=== PATIENT | female | born 1980 | race Caucasian/White ===

== ENCOUNTER 2016-12-06 17:00 | Emergency (ER) | payer OTHER ==
--- NOTE | 2016-12-06 17:26 | ED ---
General Adult HPI - General Chief complaint: Urogenital Stated complaint: URI Time Seen by Provider: 12/06/16 17:12 Source: patient, RN notes reviewed Mode of arrival: ambulatory Limitations: no limitations - History of Present Illness Initial comments: This is a 36-year-old female presents with symptoms of a UTI that started 2 hours ago. Patient states she gets UTIs very frequently and has the same symptoms every time. Patient is complaining of frequency of urination, burning with urination and a feeling of pressure in the area of the bladder. Patient denies any fever, abdominal pain, nausea/vomiting/diarrhea or flank pain. Patient denies any chance of being . Patient states she cannot get into her doctor so she came to the today. Patient denies any gross hematuria or history of kidney stones. Patient denies any recent fever, chills , shortness breath, chest pain, back pain, numbness, tingling, headache, or visual changes, or any other complaints. - Related Data Home Medications Medication Instructions Recorded Confirmed Levothyroxine Sodium [Synthroid] 250 mcg PO DAILY 07/25/16 12/06/16 Albuterol Inhaler [Ventolin Hfa 1 - 2 puff INHALATION RT-Q6H PRN 12/06/16 Inhaler] Ergocalciferol [Vitamin D2] 50,000 unit PO FR 12/06/16 12/06/16 Previous Rx's Medication Instructions Recorded Phenazopyridine HCl [Pyridium] 100 mg PO TID #6 tab 12/06/16 Sulfamethox-Tmp 800-160Mg [Bactrim 1 tab PO Q12HR #20 tab 12/06/16 DS 800-160 mg] Allergies Allergy/AdvReac Type Severity Reaction Status Date / Time clarithromycin [From Biaxin] AdvReac Nausea & Verified 12/06/16 17:13 Vomiting Review of Systems ROS Statement: Those systems with pertinent positive or pertinent negative responses have been documented in the HPI. ROS Other: All systems not noted in ROS Statement are negative. Past Medical History Past Medical History: Thyroid Disorder History of Any Multi-Drug Resistant Organisms: MRSA Date of last positivie culture/infection: 01/12/16 MDRO Source:: groin Past Surgical History: Appendectomy, Tubal Ligation, Uterine Ablation Past Psychological History: No Psychological Hx Reported Smoking Status: Former smoker Past Alcohol Use History: Occasional Past Drug Use History: None Reported General Exam - General Exam Comments Initial Comments: General: The patient is awake and alert, in no distress, and does not appear acutely ill. Neck: The neck is supple, there is no tenderness or JVD. Cardiovascular: There is a regular rate and rhythm. No murmur, rub or gallop is appreciated. Respiratory: Lungs are clear to auscultation, respirations are non-labored, breath sounds are equal. No wheezes, stridor, rales, or rhonchi. Gastrointestinal: Soft, non-distended, non-tender abdomen without masses or organomegaly noted. There is no rebound or guarding present. No CVA tenderness. Bowel sounds are unremarkable. Musculoskeletal: Normal ROM, no tenderness. Strength 5/5. Sensation intact. Radial pulses equal bilaterally 2+. Neurological: A&O x 3. CN II-XII intact, There are no obvious motor or sensory deficits. Coordination appears grossly intact. Speech is normal. Skin: Skin is warm and dry and no rashes or lesions are noted. Psychiatric: Cooperative, appropriate mood & affect, normal judgment. Limitations: no limitations Course Vital Signs 12/06/16 17:05 Temperature 97.4 F L Pulse Rate 74 Respiratory 16 Rate Blood Pressure 125/76 O2 Sat by Pulse 98 Oximetry Medical Decision Making - Medical Decision Making 28-year-old female presents with symptoms of UTI that started 2 hours ago. On physical exam patient is afebrile in the EC. Soft, non-distended, non-tender abdomen without masses or organomegaly noted. There is no rebound or guarding present. No CVA tenderness. Bowel sounds are unremarkable. Urinalysis and urine culture were done. UA came back positive for UTI. I discussed the results with patient. Patient will be started on antibiotics for this. The patient needs to drink plenty of fluids. I discussed return parameters. Discussed that patient should follow up with PCP in one to 2 days or return to the EC for any worsening symptoms or for any further concerns. Patient was receptive to this plan and patient will be discharged home. - Lab Data Lab Results 12/06/16 Range/Units 17:07 Urine Color Yellow Urine Appearance Cloudy H (Clear) Urine pH 6.0 (5.0-8.0) Ur Specific [place] 1.016 (1.001-1.035) Urine Protein Trace H (Negative) Urine Glucose (UA) Negative (Negative) Urine Ketones Negative (Negative) Urine Blood Small H (Negative) Urine Nitrate Negative (Negative) Urine Bilirubin Negative (Negative) Urine Urobilinogen <2.0 (<2.0) mg/dL Ur Leukocyte Esterase Large H (Negative) Urine RBC 28 H (0-5) /hpf Urine WBC 58 H (0-5) /hpf Ur Squamous Epith Cells 11 H (0-4) /hpf Urine Mucus Rare H (None) /hpf Urine Yeast (Budding) Few H (None) /hpf Disposition Clinical Impression: Urinary tract infection Disposition: HOME SELF-CARE Condition: Good Instructions: Urinary Tract Infection in Women (ED) Additional Instructions: Please be Sure to drink plenty of fluids. Please finish entire course of antibiotics.Please use medication as discussed. Please follow-up with family doctor in the next 2 days of symptoms have not improved. Please return to emergency room if the symptoms increase or worsen or for any other concerns. Prescriptions: Phenazopyridine HCl [Pyridium] 100 mg PO TID #6 tab Sulfamethox-Tmp 800-160Mg [Bactrim DS 800-160 mg] 1 tab PO Q12HR #20 tab Time of Disposition: 17:57
[2016-12-06 17:43] LABS: Appearance,Urine Cloudy (Clear); Bilirubin,Urine Negative (Negative); Glucose,Urine (UA) Negative (Negative); Ketones,Urine Negative (Negative); Leukocyte Esterase,Urine Large (Negative); Mucus,Urine Rare /hpf; Nitrite,Urine Negative (Negative); Particle Count 7569; Protein,Urine Trace (Negative); RBC,Urine 28 /hpf (0-5); Specific Gravity,Urine 1.016 (1.001-1.035); Squamous Epithelial Cell,Urine 11 /hpf (0-4); UA Billing (MACRO vs. MICRO) MICRO; Urobilinogen,Urine <2.0 mg/dL (<2.0); WBC,Urine 58 /hpf (0-5)
[2016-12-06 17:59] VITALS: BP 122/75; PULSE 76; RESP 18; TEMP 97.5
== END 2016-12-06 18:06 | disposition home or self-care (01) ==
LOC: EC 17:00
DX: N39.0 Urinary tract infection, site not specified (principal); E07.9 Disorder of thyroid, unspecified; Z79.899 Other long term (current) drug therapy; Z88.1 Allergy status to other antibiotic agents; Z87.891 Personal history of nicotine dependence; Z87.440 Personal history of urinary (tract) infections
CPT/HCPCS: 81001; 87077; 87086; 87186; 99283

== ENCOUNTER 2017-05-01 21:01 | Emergency (ER) | payer OTHER ==
[2017-05-01 21:16] VITALS: BP 124/72; PULSE 82; RESP 20; TEMP 98.1
--- NOTE | 2017-05-01 21:46 | ED ---
General Adult HPI - General Chief complaint: Skin/Abscess/Foreign Body Stated complaint: Poss MRSA Time Seen by Provider: 05/01/17 21:30 Source: patient, RN notes reviewed Mode of arrival: ambulatory Limitations: no limitations - History of Present Illness Initial comments: 36-year-old female with past medical history of MRSA presents for abscess to the right buttock. Patient states this started yesterday. Patient has noticed some pain to the area without any drainage. She was concerned due to her symptoms so she thought that she should be evaluated. She denies any fever chills. Tender to touch over the area with no other complaints.Patient denies any recent fever, chills, shortness of breath, chest pain, back pain, abdominal pain, nausea vomiting, numbness or tingling, dysuria or hematuria, constipation or diarrhea, headaches or visual changes, or any other current symptoms. - Related Data Home Medications Medication Instructions Recorded Confirmed Levothyroxine Sodium [Synthroid] 250 mcg PO DAILY 07/25/16 05/01/17 Previous Rx's Medication Instructions Recorded Sulfamethox-Tmp 800-160Mg [Bactrim 2 each PO Q12HR #56 tab 05/01/17 DS 800-160 mg] Allergies Allergy/AdvReac Type Severity Reaction Status Date / Time clarithromycin [From Biaxin] AdvReac Nausea & Verified 05/01/17 21:35 Vomiting Review of Systems ROS Statement: Those systems with pertinent positive or pertinent negative responses have been documented in the HPI. ROS Other: All systems not noted in ROS Statement are negative. Past Medical History Past Medical History: Thyroid Disorder History of Any Multi-Drug Resistant Organisms: MRSA Date of last positivie culture/infection: 01/12/16 MDRO Source:: groin Past Surgical History: Appendectomy, Tubal Ligation, Uterine Ablation Past Psychological History: No Psychological Hx Reported Smoking Status: Former smoker Past Alcohol Use History: Occasional Past Drug Use History: None Reported General Exam Limitations: no limitations General appearance: alert, in no apparent distress Neck exam: Present: normal inspection. Absent: tenderness, meningismus, lymphadenopathy Respiratory exam: Present: normal lung sounds bilaterally. Absent: respiratory distress, wheezes, rales, rhonchi, stridor Cardiovascular Exam: Present: regular rate, normal rhythm, normal heart sounds. Absent: systolic murmur, diastolic murmur, rubs, gallop, clicks Neurological exam: Present: alert, oriented X3 Psychiatric exam: Present: normal affect, normal mood Skin exam: Present: warm, dry, other (Patient appears to have a right gluteal abscess. This is minor with no associated erythema around the area.) Course Vital Signs 05/01/17 21:13 Temperature 98.1 F Pulse Rate 82 Respiratory 20 Rate Blood Pressure 124/72 O2 Sat by Pulse 98 Oximetry Procedures - Procedures Initial comment: Procedure: Incision and drainage The skin overlying the abscess was prepped with Betadine, and anesthetized with 1% lidocaine without epinephrine. A #11 scalpel was then used to incise the abscess. no purulent material was then extracted from the lesion.Gauze dressing placed on top, The patient tolerated the procedure well. Medical Decision Making - Medical Decision Making 36-year-old female presents for right gluteal abscess. This time I did not have any purulent material. We did discuss care follow-up return parameters. We did discuss all the patient's questions. He stated the [facility] management plan. They will be discharged home. Disposition Clinical Impression: Abscess, gluteal, right Disposition: HOME SELF-CARE Condition: Stable Instructions: Abscess (ED) Additional Instructions: Please use medication as discussed. Please follow up with family doctor if symptoms have not improved over the next two days. Please return to the emergency room if your symptoms increase or worsen or for any other concerns. Prescriptions: Sulfamethox-Tmp 800-160Mg [Bactrim DS 800-160 mg] 2 each PO Q12HR #56 tab Referrals: Yuliet Roche DO [Primary Care Provider] - 1-2 days Time of Disposition: 21:46
== END 2017-05-01 21:52 | disposition home or self-care (01) ==
LOC: EC 21:01
DX: L02.31 Cutaneous abscess of buttock (principal); E07.9 Disorder of thyroid, unspecified; Z79.899 Other long term (current) drug therapy; Z88.1 Allergy status to other antibiotic agents; Z87.891 Personal history of nicotine dependence; Z86.14 Personal history of Methicillin resistant Staphylococcus aureus infection
CPT/HCPCS: 10060; 99283

== ENCOUNTER 2017-11-23 07:26 | Emergency (ER) | payer OTHER ==
[2017-11-23 07:34] VITALS: RESP 18; TEMP 99.4
--- NOTE | 2017-11-23 09:03 | ED ---
General Adult HPI - General Chief complaint: Skin/Abscess/Foreign Body Stated complaint: Boils Time Seen by Provider: 11/23/17 08:44 Source: patient, RN notes reviewed Mode of arrival: ambulatory Limitations: no limitations - History of Present Illness Initial comments: 37-year-old female presents to the emergency department with a chief complaint of flareup of her hidradenitis. Patient states that she has had this on her arm for the past few days. She states that we are no suppose to drain this. She states that she supposed to be started on antibiotics. She denies any fever chills with this. She states it is painful to touch. She states that she was recently on a different antibiotic than normal the last one which did not feel like that helped. Patient states she hasn't had a nausea vomiting with this. Patient states her pain is moderate worse to touch or movement. Patient states that she just needs her antibiotic and hopefully it will improve. Patient denies any other symptoms at this time.Patient denies any recent fever, chills, shortness of breath, chest pain, back pain, abdominal pain , nausea vomiting, numbness or tingling, dysuria or hematuria, constipation or diarrhea, headaches or visual changes, or any other current symptoms. - Related Data Home Medications Medication Instructions Recorded Confirmed Levothyroxine Sodium [Synthroid] 250 mcg PO DAILY 07/25/16 11/23/17 Ascorbic Acid/Multivit-Min 1,000 mg PO DAILY 11/23/17 11/23/17 [Emergen-C 1,000 mg Packet] Boswella 1 tab PO DAILY 11/23/17 11/23/17 Forskolin 1 tab PO DAILY 11/23/17 11/23/17 Ibuprofen [Motrin] 800 mg PO Q6H PRN 11/23/17 11/23/17 Previous Rx's Medication Instructions Recorded Sulfamethox-Tmp 800-160Mg [Bactrim 2 each PO Q12HR #56 tab 11/23/17 DS 800-160 mg] Allergies Allergy/AdvReac Type Severity Reaction Status Date / Time clarithromycin [From Biaxin] AdvReac Nausea & Verified 11/23/17 07:50 Vomiting Review of Systems ROS Statement: Those systems with pertinent positive or pertinent negative responses have been documented in the HPI. ROS Other: All systems not noted in ROS Statement are negative. Past Medical History Past Medical History: Thyroid Disorder Additional Past Medical History / Comment(s): Hidradenitis suppurativa History of Any Multi-Drug Resistant Organisms: MRSA Date of last positivie culture/infection: 01/12/16 MDRO Source:: groin Past Surgical History: Appendectomy, Tubal Ligation, Uterine Ablation Past Psychological History: No Psychological Hx Reported Smoking Status: Former smoker Past Alcohol Use History: Occasional Past Drug Use History: None Reported General Exam - General Exam Comments Initial Comments: General: The patient is awake and alert, in no distress, and does not appear acutely ill. Neck: The neck is supple, there is no tenderness. Cardiovascular: There is a regular rate and rhythm. No murmur, rub or gallop is appreciated. Respiratory: Lungs are clear to auscultation, respirations are non-labored, breath sounds are equal. No wheezes, stridor, rales, or rhonchi. Musculoskeletal: Sensation intact with 2+ pulses throughout the right upper extremity. Patient has full range of motion of the right arm. Patient does appear to have an abscess in the right axilla with minimal erythema surrounding the area. Some fluctuance to touch. No purulent drainage observed. Neurological: CN II-XII intact, There are no obvious motor or sensory deficits. Coordination appears grossly intact. Speech is normal. Skin: Skin is warm and dry and no rashes or lesions are noted. Psychiatric: Normal mood and affect. Limitations: no limitations Course Vital Signs 11/23/17 07:27 Temperature 99.4 F Pulse Rate 105 H Respiratory 18 Rate Blood Pressure 119/78 O2 Sat by Pulse 98 Oximetry Medical Decision Making - Medical Decision Making 37-year-old female presents for an abscess under the right axilla. At this time patient has a history of hidradenitis therefore we'll start her on Bactrim however will not drain the abscess to her diagnosis. I this and we did discuss follow-up with her doctor we did discuss return parameters all questions. The patient stated that she understood and is in agreement with this plan. All of her questions have been answered. Patient will be discharged home. Disposition Clinical Impression: Abscess of right axilla, Hydradenitis Disposition: HOME SELF-CARE Condition: Stable Instructions: Abscess (ED) Additional Instructions: Please use medication as discussed. Please follow up with family doctor if symptoms have not improved over the next two days. Please return to the emergency room if your symptoms increase or worsen or for any other concerns. Prescriptions: Sulfamethox-Tmp 800-160Mg [Bactrim DS 800-160 mg] 2 each PO Q12HR #56 tab Referrals: Yuliet Roche DO [Primary Care Provider] - 1-2 days Time of Disposition: 09:03
[2017-11-23 09:33] VITALS: BP 118/80; PULSE 87
== END 2017-11-23 09:33 | disposition home or self-care (01) ==
LOC: EC 07:26
DX: L02.411 Cutaneous abscess of right axilla (principal); L73.2 Hidradenitis suppurativa; E07.9 Disorder of thyroid, unspecified; Z86.14 Personal history of Methicillin resistant Staphylococcus aureus infection; Z87.891 Personal history of nicotine dependence; Z79.899 Other long term (current) drug therapy; Z88.1 Allergy status to other antibiotic agents
CPT/HCPCS: 99282

== ENCOUNTER 2017-11-23 15:26 | Emergency (ER) | payer OTHER ==
[2017-11-23] MEDS ORDERED: VANCOMYCIN IV PER PHARMACY 1 EACH MISC MISCELLANE PRN (15:47)
[2017-11-23] MEDS ORDERED: VANCOMYCIN 1,500 MG in SODIUM CHLORIDE 0.9% 250 ML IVPB STA (15:53)
[2017-11-23] MEDS ORDERED: ACETAMINOPHEN TAB 500 MG TAB PO STA (15:59)
--- NOTE | 2017-11-23 15:59 | ED ---
General Adult HPI - General Chief complaint: Skin/Abscess/Foreign Body Stated complaint: Fever Time Seen by Provider: 11/23/17 15:40 Source: patient, RN notes reviewed Mode of arrival: ambulatory Limitations: no limitations - History of Present Illness Initial comments: 37-year-old female who was seen earlier today for an abscess under the right axilla returns because she developed a fever. She states this happened was she was at work. She is concerned because she just keeps getting hot flashes. She states she took Motrin earlier today. She denies any Tylenol. She did take her first dose of Bactrim. She states that the abscess under her right axilla continues to be painful. She thought that she should be evaluated. She denies any nausea vomiting any cough cold like symptoms. Patient denies any recent fever, chills, shortness of breath, chest pain, back pain, abdominal pain, nausea vomiting, numbness or tingling, dysuria or hematuria, constipation or diarrhea, headaches or visual changes, or any other current symptoms. - Related Data Home Medications Medication Instructions Recorded Confirmed Levothyroxine Sodium [Synthroid] 250 mcg PO DAILY 07/25/16 11/23/17 Ascorbic Acid/Multivit-Min 1,000 mg PO DAILY 11/23/17 11/23/17 [Emergen-C 1,000 mg Packet] Boswella 1 tab PO DAILY 11/23/17 11/23/17 Forskolin 1 tab PO DAILY 11/23/17 11/23/17 Ibuprofen [Motrin] 800 mg PO Q6H PRN 11/23/17 11/23/17 Sulfamethox-Tmp 800-160Mg [Bactrim 2 tab PO Q12HR 11/23/17 11/23/17 DS 800-160 mg] Allergies Allergy/AdvReac Type Severity Reaction Status Date / Time clarithromycin [From Biaxin] AdvReac Nausea & Verified 11/23/17 15:45 Vomiting Review of Systems ROS Statement: Those systems with pertinent positive or pertinent negative responses have been documented in the HPI. ROS Other: All systems not noted in ROS Statement are negative. Past Medical History Past Medical History: Thyroid Disorder Additional Past Medical History / Comment(s): Hidradenitis suppurativa History of Any Multi-Drug Resistant Organisms: MRSA Date of last positivie culture/infection: 01/12/16 MDRO Source:: groin Past Surgical History: Appendectomy, Tubal Ligation, Uterine Ablation Past Psychological History: No Psychological Hx Reported Smoking Status: Former smoker Past Alcohol Use History: Occasional Past Drug Use History: None Reported General Exam Limitations: no limitations General appearance: alert, in no apparent distress ENT exam: Present: normal exam, mucous membranes moist Neck exam: Present: normal inspection. Absent: tenderness, meningismus, lymphadenopathy Respiratory exam: Present: normal lung sounds bilaterally. Absent: respiratory distress, wheezes, rales, rhonchi, stridor Cardiovascular Exam: Present: regular rate, normal rhythm, normal heart sounds. Absent: systolic murmur, diastolic murmur, rubs, gallop, clicks Neurological exam: Present: alert, oriented X3 Psychiatric exam: Present: normal affect, normal mood Skin exam: Present: warm, dry, intact, other (Abscess under the right axilla with minimal erythema no active drainage.) Course Vital Signs 11/23/17 15:32 Temperature 100.4 F H Pulse Rate 78 Respiratory 16 Rate Blood Pressure 131/80 O2 Sat by Pulse 97 Oximetry Medical Decision Making - Medical Decision Making 37-year-old female presents emergency department with chief complaint of abscess due to hidradenitis along with fever. At this time patient's lab work is been reviewed that shows mildly elevated white count. Thepatient is stable. This and we did discuss admission versus going home. She would rather go home. This and we discussed continuing the Bactrim which she took her first dose this morning. We did discuss continued follow-up. We did discuss return parameters all questions. Patient stated that she understood and she is agreement this plan. She'll be discharged. - Lab Data Result diagrams: 11/23/17 16:16 11/23/17 16:16 Lab Results 11/23/17 11/23/17 Range/Units 16:16 16:16 WBC 12.4 H (3.8-10.6) k/uL RBC 4.52 (3.80-5.40) m/uL Hgb 13.3 (11.4-16.0) gm/dL Hct 41.8 (34.0-46.0) % MCV 92.4 (80.0-100.0) fL MCH 29.5 (25.0-35.0) pg MCHC 31.9 (31.0-37.0) g/dL RDW 11.9 (11.5-15.5) % Plt Count 264 (150-450) k/uL Neutrophils % 81 % Lymphocytes % 11 % Monocytes % 7 % Eosinophils % 1 % Basophils % 0 % Neutrophils # 10.0 H (1.3-7.7) k/uL Lymphocytes # 1.3 (1.0-4.8) k/uL Monocytes # 0.9 (0-1.0) k/uL Eosinophils # 0.1 (0-0.7) k/uL Basophils # 0.0 (0-0.2) k/uL Sodium 140 (137-145) mmol/L Potassium 4.2 (3.5-5.1) mmol/L Chloride 101 (98-107) mmol/L Carbon Dioxide 25 (22-30) mmol/L Anion Gap 14 mmol/L BUN 12 (7-17) mg/dL Creatinine 0.80 (0.52-1.04) mg/dL Est GFR (MDRD) Af Amer >60 (>60 ml/min/1.73 sqM) Est GFR (MDRD) Non-Af >60 (>60 ml/min/1.73 sqM) Glucose 89 (74-99) mg/dL Calcium 9.8 (8.4-10.2) mg/dL Total Bilirubin 0.7 (0.2-1.3) mg/dL AST 20 (14-36) U/L ALT 32 (9-52) U/L Alkaline Phosphatase 64 (38-126) U/L Total Protein 7.2 (6.3-8.2) g/dL Albumin 4.2 (3.5-5.0) g/dL Disposition Clinical Impression: Abscess of right axilla, Hydradenitis Disposition: HOME SELF-CARE Condition: Stable Instructions: Abscess (ED) Additional Instructions: Please use medication as discussed. Please follow up with family doctor if symptoms have not improved over the next two days. Please return to the emergency room if your symptoms increase or worsen or for any other concerns. Referrals: Yuliet Roche DO [Primary Care Provider] - 1-2 days Time of Disposition: 17:36
[2017-11-23 16:29] LABS: Basophils % (A) 0 %; Eosinophils # (A) 0.1 k/uL (0-0.7); Eosinophils % (A) 1 %; HCT 41.8 % (34.0-46.0); HGB 13.3 gm/dL (11.4-16.0); Lymphocytes # (A) 1.3 k/uL (1.0-4.8); Lymphocytes % (A) 11 %; MCH 29.5 pg (25.0-35.0); MCHC 31.9 g/dL (31.0-37.0); MCV 92.4 fL (80.0-100.0); Mean Platelet Volume 7.5; Monocytes # (A) 0.9 k/uL (0-1.0); Monocytes % (A) 7 %; Neutrophils % (A) 81 %; Platelet Count 264 k/uL (150-450); RBC 4.52 m/uL (3.80-5.40); RDW 11.9 % (11.5-15.5); WBC 12.4 k/uL (3.8-10.6)
[2017-11-23 16:42] LABS: ALT 32 U/L (9-52); AST 20 U/L (14-36); Albumin 4.2 g/dL (3.5-5.0); Alkaline Phosphatase 64 U/L (38-126); Anion Gap 14 mmol/L; Blood Urea Nitrogen 12 mg/dL (7-17); Calcium 9.8 mg/dL (8.4-10.2); Carbon Dioxide 25 mmol/L (22-30); Chloride 101 mmol/L (98-107); Glucose 89 mg/dL (74-99); Potassium 4.2 mmol/L (3.5-5.1); Sodium 140 mmol/L (137-145); Total Bilirubin 0.7 mg/dL (0.2-1.3); Total Protein 7.2 g/dL (6.3-8.2)
[2017-11-23 18:54] VITALS: BP 118/68; PULSE 100; RESP 18; TEMP 98
[2017-11-24] MEDS ORDERED: VANCOMYCIN 1,500 MG in SODIUM CHLORIDE 0.9% 250 ML IVPB SCH (06:00)
== END 2017-11-23 18:54 | disposition home or self-care (01) ==
LOC: EC 15:26
DX: L73.2 Hidradenitis suppurativa (principal); L02.411 Cutaneous abscess of right axilla; D72.829 Elevated white blood cell count, unspecified; E07.9 Disorder of thyroid, unspecified; Z87.891 Personal history of nicotine dependence; Z79.899 Other long term (current) drug therapy; Z88.1 Allergy status to other antibiotic agents; Z86.14 Personal history of Methicillin resistant Staphylococcus aureus infection
CPT/HCPCS: 99283 ×2; 96365 ×2; 96366 ×2; 99282; 36415; 80053; 85025; 87040; J3370

== ENCOUNTER 2017-12-06 17:45 | Emergency (ER) | payer OTHER ==
--- NOTE | 2017-12-06 19:08 | ED ---
Fall HPI - General Chief Complaint: Fall Stated Complaint: fall/finger pain Time Seen by Provider: 12/06/17 18:49 Source: patient Mode of arrival: ambulatory - History of Present Illness Initial Comments: 37 year-old female patient presents to the emergency department today with complaints of right fourth digit pain. Patient states that earlier today she was going into the hospital in the garage and she tripped up the stairs and fell landing with her fingers out. She states that she can feel a clicking of the finger whenever she attempts to bend it. She states that she did take Motrin for this and it did improve the pain somewhat. She denies hitting her head or losing consciousness with the fall. She denies any other injuries. Patient denies any headache, neck pain, back pain, chest pain, shortness of breath, dizziness, weakness, abdominal pain, nausea, vomiting, or difficulties with bowel movements or urination. - Related Data Home Medications Medication Instructions Recorded Confirmed Levothyroxine Sodium [Synthroid] 250 mcg PO DAILY 07/25/16 12/06/17 Ascorbic Acid/Multivit-Min 1,000 mg PO DAILY 11/23/17 12/06/17 [Emergen-C 1,000 mg Packet] Previous Rx's Medication Instructions Recorded Ibuprofen [Motrin] 600 mg PO Q8HR PRN #30 tab 12/06/17 Allergies Allergy/AdvReac Type Severity Reaction Status Date / Time clarithromycin [From Biaxin] AdvReac Nausea & Verified 12/06/17 18:42 Vomiting Review of Systems ROS Statement: Those systems with pertinent positive or pertinent negative responses have been documented in the HPI. ROS Other: All systems not noted in ROS Statement are negative. Past Medical History Past Medical History: Thyroid Disorder Additional Past Medical History / Comment(s): Hidradenitis suppurativa History of Any Multi-Drug Resistant Organisms: MRSA Date of last positivie culture/infection: 01/12/16 MDRO Source:: groin Past Surgical History: Appendectomy, Tubal Ligation, Uterine Ablation Past Psychological History: No Psychological Hx Reported Smoking Status: Former smoker Past Alcohol Use History: Occasional Past Drug Use History: None Reported General Exam Limitations: no limitations General appearance: alert, in no apparent distress, other (Physical well- developed, well-nourished adult female patient in no acute distress. Vital signs upon presentation are temperature 98.6F, pulse 85, respirations 20, blood pressure 138/67, pulse ox 99% on room air.) Eye exam: Present: normal appearance, PERRL, EOMI. Absent: scleral icterus, conjunctival injection, periorbital swelling ENT exam: Present: normal exam, normal oropharynx, mucous membranes moist Neck exam: Present: normal inspection, full ROM, other (Nontender, no step-off, no deformity to firm midline palpation of the posterior cervical spine. Full range of motion without pain or limitation.). Absent: tenderness, meningismus, lymphadenopathy Respiratory exam: Present: normal lung sounds bilaterally. Absent: respiratory distress, wheezes, rales, rhonchi, stridor Cardiovascular Exam: Present: regular rate, normal rhythm, normal heart sounds. Absent: systolic murmur, diastolic murmur, rubs, gallop, clicks Extremities exam: Present: full ROM (Full range of motion present to the right fourth digit, patient reports feeling clicking with movement), tenderness ( Tenderness over the distal aspect of the right fourth digit), normal capillary refill, other (There is mild swelling and ecchymosis noted to the distal aspect of the right fourth digit. Skin is otherwise pink, warm, and dry. Cap refill is less than 3 seconds. Radial pulses 2+ and equal bilaterally.). Absent: normal inspection, pedal edema, joint swelling, calf tenderness Back exam: Absent: vertebral tenderness Neurological exam: Present: alert, oriented X3, CN II-XII intact Psychiatric exam: Present: normal affect, normal mood Skin exam: Present: warm, dry, intact, normal color. Absent: rash Course Vital Signs 12/06/17 18:39 Temperature 98.6 F Pulse Rate 85 Respiratory 20 Rate Blood Pressure 138/67 O2 Sat by Pulse 99 Oximetry Procedures - Orthopedic Splinting/Casting Injury #1 Side: right Upper Extremity Injury Location: finger Upper Extremity Immobilizer: finger (other) Additional Comments: Patient tolerated splinting well. Neurovascular status intact after splint application. Medical Decision Making - Medical Decision Making 37-year-old female patient presents to the emergency department today for evaluation of right fourth finger pain after a fall at home. Physical examination does show mild swelling and ecchymosis to the distal aspect of the right fourth digit. Neurovascular status is intact. X-ray of the finger did show a intra-articular chip fracture of the proximal aspect of the distal phalanx. I did discuss findings with the patient. She was placed in a finger splint. She is instructed to follow-up with orthopedics for recheck in 1-2 days. She is instructed to return here immediately for any new, worsening, or concerning symptoms. She verbalizes understanding and agrees with this plan. - Radiology Data Radiology results: report reviewed, image reviewed 3 views of the right fourth digit shows a 5 mm intra-articular chip fracture of the posterior base of the distal phalanx of the ring finger on the right hand. There is no dislocation. Impression by Dr. Zepeda shows fracture of the distal phalanx ring finger right hand as above. Disposition Clinical Impression: Finger fracture, right Disposition: HOME SELF-CARE Condition: Good Instructions: Finger Fracture (ED) Additional Instructions: Leave splint in place for 2-3 weeks. Follow up with orthopedics for further evaluation. Return here immediately for any new, worsening, or concerning symptoms. Prescriptions: Ibuprofen [Motrin] 600 mg PO Q8HR PRN #30 tab PRN Reason: Pain Referrals: Yuliet Roche DO [Primary Care Provider] - 1-2 days Shay Arroyo DO [Doctor of Osteopathic Medicine] - 1-2 days Time of Disposition: 19:44
--- NOTE | 2017-12-06 19:39 | XR ---
EXAMINATION TYPE: XR finger RT DATE OF EXAM: 12/06/2017 COMPARISON: NONE HISTORY: Pain after falling TECHNIQUE: 3 views FINDINGS: There is a 5 mm intra-articular chip fracture of the posterior base of the distal phalanx o f the ring finger right hand. There is no dislocation. IMPRESSION: Fracture of the distal phalanx ring finger right hand as above.
[2017-12-06 20:07] VITALS: BP 127/84; PULSE 70; RESP 18; TEMP 98.8
== END 2017-12-06 20:06 | disposition home or self-care (01) ==
LOC: EC 17:45
DX: S62.634A Displaced fracture of distal phalanx of right ring finger, initial encounter for closed fracture (principal); E07.9 Disorder of thyroid, unspecified; Z86.14 Personal history of Methicillin resistant Staphylococcus aureus infection; Z87.891 Personal history of nicotine dependence; Z79.899 Other long term (current) drug therapy; Z88.1 Allergy status to other antibiotic agents; W10.9XXA Fall (on) (from) unspecified stairs and steps, initial encounter; Y92.008 Other place in unspecified non-institutional (private) residence as the place of occurrence of the external cause
CPT/HCPCS: 99283

== ENCOUNTER 2018-07-03 19:35 | Emergency (ER) | payer OTHER ==
[2018-07-03 21:25] LABS: Appearance,Urine Cloudy (Clear); Bilirubin,Urine Negative (Negative); Blood,Urine Small (Negative); Color,Urine Light Yellow; Glucose,Urine (UA) Negative (Negative); Ketones,Urine Trace (Negative); Leukocyte Esterase,Urine Large (Negative); Mucus,Urine Rare /hpf; Nitrite,Urine Negative (Negative); PH, Urine 7.5 (5.0-8.0); Protein,Urine Trace (Negative); RBC,Urine 34 /hpf (0-5); Specific Gravity,Urine 1.012 (1.001-1.035); Squamous Epithelial Cell,Urine 2 /hpf (0-4); Urobilinogen,Urine <2.0 mg/dL (<2.0); WBC,Urine >182 /hpf (0-5)
[2018-07-03] MEDS ORDERED: SULFAMETHOX-TMP 800-160MG 1 EACH TAB PO STA (21:34)
--- NOTE | 2018-07-03 21:39 | ED ---
Female Urogenital HPI - General Source: patient, RN notes reviewed Mode of arrival: ambulatory Limitations: no limitations <Cheyenne Shelby - Last Filed: 07/03/18 21:39> <Ayala Peterson - Last Filed: 07/03/18 23:17> - General Chief complaint: Urogenital Stated complaint: UTI/fever Time Seen by Provider: 07/03/18 20:17 - History of Present Illness Initial comments: This is a 38-year-old female who presents to the emergency department with chief complaint of urinary tract infection. Patient states that last evening she developed dysuria, increased urinary frequency and urgency. She reports a history of frequent urinary tract infections. She states that she usually takes Bactrim which has relieved her symptoms in the past. She denies any fevers or flank pain. Denies any chills, chest pain or shortness of breath, abdominal pain, nausea or vomiting, diarrhea. (Cheyenne Shelby) - Related Data Home Medications Medication Instructions Recorded Confirmed L.acidoph,Paracasei, B.lactis 1 cap PO DAILY 07/03/18 07/03/18 [Probiotic] Levothyroxine Sodium [Synthroid] 200 mcg PO DAILY 07/03/18 07/03/18 Multivitamins, Thera [Multivitamin 1 tab PO DAILY 07/03/18 07/03/18 (formulary)] Previous Rx's Medication Instructions Recorded Phenazopyridine HCl [Pyridium] 100 mg PO TID #6 tab 07/03/18 Sulfamethoxazole/Trimethoprim 1 each PO BID #10 tablet 07/03/18 [Bactrim DS 800-160 mg] Allergies Allergy/AdvReac Type Severity Reaction Status Date / Time clarithromycin [From Biaxin] AdvReac Nausea & Verified 07/03/18 20:21 Vomiting Review of Systems ROS Other: All systems not noted in ROS Statement are negative. <Cheyenne Shelby - Last Filed: 07/03/18 21:39> ROS Other: All systems not noted in ROS Statement are negative. <Ayala Peterson - Last Filed: 07/03/18 23:17> ROS Statement: Those systems with pertinent positive or pertinent negative responses have been documented in the HPI. Past Medical History Past Medical History: Thyroid Disorder Additional Past Medical History / Comment(s): Hidradenitis suppurativa History of Any Multi-Drug Resistant Organisms: MRSA Date of last positivie culture/infection: 01/12/16 MDRO Source:: groin Past Surgical History: Appendectomy, Tubal Ligation, Uterine Ablation Past Psychological History: No Psychological Hx Reported Smoking Status: Former smoker Past Alcohol Use History: Occasional Past Drug Use History: None Reported <Cheyenne Shelby - Last Filed: 07/03/18 21:39> General Exam Limitations: no limitations <Cheyenne Shelby - Last Filed: 07/03/18 21:39> <Ayala Peterson - Last Filed: 07/03/18 23:17> - General Exam Comments Initial Comments: General: Awake and alert, well-developed; in no apparent distress. HEENT: Head atraumatic, normocephalic. Pupils are equal, round and reactive to light. Extraocular movements intact. Oropharynx moist without erythema or exudate. Neck: Supple. Normal ROM. Cardiovascular: Regular rate and rhythm. No murmurs, rubs or gallops. Chest symmetrical. Respiratory: Lungs clear to auscultation bilaterally. No wheezes, rales or rhonchi. Normal respiratory effort with no use of accessory muscles. Abdomen: Soft, non-distended. Mild tenderness on palpation of suprapubic region. No rigidity, rebound or guarding. Normal bowel sounds in all 4 quadrants. No CVA tenderness bilaterally. Musculoskeletal: Normal ROM, no tenderness bilateral upper and lower extremities. Ambulating normally. Skin: [place], warm and dry without rashes or lesions. Neurological: Alert and oriented x3. CN II-XII grossly intact. Speech is fluent and answers are appropriate. No focal neuro deficits. Psychiatric: Normal mood and affect. No overt signs of depression or anxiety noted. (Cheyenne Shelby) Vital Signs 07/03/18 07/03/18 20:12 21:48 Temperature 98.3 F 98.5 F Pulse Rate 87 78 Respiratory 20 16 Rate Blood Pressure 127/76 144/90 O2 Sat by Pulse 99 100 Oximetry Medical Decision Making <Cheyenne Shelby - Last Filed: 07/03/18 21:39> <Ayala ePterson - Last Filed: 07/03/18 23:17> - Medical Decision Making This is a 38-year-old female who presents to the emergency department with chief complaint of urinary tract infection. Patient was a history of frequent urinary tract infections and has been experiencing the same symptoms since last night. UA does reveal evidence for infection with white blood cells, white blood cell clumps and leukocyte esterase. Patient states that Bactrim works well for her symptoms. She will be provided with a prescription for Bactrim as well as Pyridium. Vitals are stable and patient is in no acute distress. She will be discharged home at this time. She is in agreement and voices understanding. All questions were answered. (Cheyenne Shelby) I was available for consultation in the emergency department. The history and physical exam were done by the midlevel provider. I was consulted for this patient's care. I reviewed the case with the midlevel provider and based on their presentation of the patient, I agree with the assessment, medical decision making and plan of care as documented. (Ayala Peterson) - Lab Data Lab Results 07/03/18 07/03/18 Range/Units 20:18 20:30 Urine Color Light Yellow Urine Appearance Cloudy H (Clear) Urine pH 7.5 (5.0-8.0) Ur Specific [place] 1.012 (1.001-1.035) Urine Protein Trace H (Negative) Urine Glucose (UA) Negative (Negative) Urine Ketones Trace H (Negative) Urine Blood Small H (Negative) Urine Nitrite Negative (Negative) Urine Bilirubin Negative (Negative) Urine Urobilinogen <2.0 (<2.0) mg/dL Ur Leukocyte Esterase Large H (Negative) Urine RBC 34 H (0-5) /hpf Urine WBC >182 H (0-5) /hpf Urine WBC Clumps Few H (None) /hpf Ur Squamous Epith Cells 2 (0-4) /hpf Urine Mucus Rare H (None) /hpf Urine HCG, Qual Not Detected (Not Detectd) Disposition Is patient prescribed a controlled substance at d/c from ED?: No Time of Disposition: 21:39 <Cheyenne Shelby - Last Filed: 07/03/18 21:39> <Ayala Peterson - Last Filed: 07/03/18 23:17> Clinical Impression: Urinary tract infection Disposition: HOME SELF-CARE Condition: Good Instructions: Urinary Tract Infection in Women (ED) Additional Instructions: Please take medications as prescribed. Please follow up with primary care provider within 1-2 days. Return to emergency department if symptoms should worsen or any concerns arise. Prescriptions: Phenazopyridine HCl [Pyridium] 100 mg PO TID #6 tab Sulfamethoxazole/Trimethoprim [Bactrim DS 800-160 mg] 1 each PO BID #10 tablet Referrals: Yuliet Roche DO [Primary Care Provider] - 1-2 days
[2018-07-03 21:49] VITALS: BP 144/90; PULSE 78; RESP 16; TEMP 98.5
== END 2018-07-03 21:49 | disposition home or self-care (01) ==
LOC: EC 19:35
DX: N39.0 Urinary tract infection, site not specified (principal); E07.9 Disorder of thyroid, unspecified; Z87.891 Personal history of nicotine dependence; Z88.1 Allergy status to other antibiotic agents; Z79.899 Other long term (current) drug therapy; Z86.14 Personal history of Methicillin resistant Staphylococcus aureus infection
CPT/HCPCS: 81001; 81025; 87086; 99283

== ENCOUNTER 2019-03-05 19:59 | Emergency (ER) | payer OTHER ==
[2019-03-05 20:16] VITALS: RESP 20
[2019-03-05] MEDS ORDERED: PHENAZOPYRIDINE 200 MG TAB PO STA (20:48)
--- NOTE | 2019-03-05 20:51 | ED ---
Female Urogenital HPI - General Chief complaint: Urogenital Stated complaint: UTI Time Seen by Provider: 03/05/19 20:38 Source: patient Mode of arrival: ambulatory Limitations: no limitations - History of Present Illness Initial comments: Patient is a 38-year-old female with a history of Graves' disease, status post ablation 2, currently on Synthroid who presents with a chief complaint of dysuria. The patient states that she gets frequent urinary tract infections. She states that this has been going on for about 3 days. She started taking [id number] Azo which is not helping her symptoms. Patient admits to dysuria, frequency, and suprapubic irritation. She denies any vaginal bleeding, discharge. Timing is constant. Last Menstrual Period: 02/12/19 - Related Data Home Medications Medication Instructions Recorded Confirmed L.acidoph,Paracasei, B.lactis 1 cap PO DAILY 07/03/18 07/03/18 [Probiotic] Levothyroxine Sodium [Synthroid] 200 mcg PO DAILY 07/03/18 07/03/18 Multivitamins, Thera [Multivitamin 1 tab PO DAILY 07/03/18 07/03/18 (formulary)] Previous Rx's Medication Instructions Recorded Phenazopyridine HCl [Pyridium] 100 mg PO TID #6 tab 07/03/18 Sulfamethoxazole/Trimethoprim 1 each PO BID #10 tablet 07/03/18 [Bactrim DS 800-160 mg] Phenazopyridine HCl [Pyridium] 200 mg PO BID PRN #5 tablet 03/05/19 Sulfamethox-Tmp 800-160Mg [Bactrim 1 tab PO Q12HR #13 tab 03/05/19 DS 800-160 mg] Allergies Allergy/AdvReac Type Severity Reaction Status Date / Time clarithromycin [From Biaxin] AdvReac Nausea & Verified 03/05/19 20:16 Vomiting Review of Systems ROS Statement: Those systems with pertinent positive or pertinent negative responses have been documented in the HPI. ROS Other: All systems not noted in ROS Statement are negative. Genitourinary: Reports: urgency, dysuria, frequency Past Medical History Past Medical History: Thyroid Disorder Additional Past Medical History / Comment(s): Hidradenitis suppurativa History of Any Multi-Drug Resistant Organisms: MRSA Date of last positivie culture/infection: 01/12/16 MDRO Source:: groin Past Surgical History: Appendectomy, Tubal Ligation, Uterine Ablation Past Psychological History: No Psychological Hx Reported Smoking Status: Former smoker Past Alcohol Use History: Occasional Past Drug Use History: None Reported General Exam Limitations: no limitations General appearance: alert, in no apparent distress Head exam: Present: atraumatic, normocephalic Eye exam: Present: normal appearance ENT exam: Present: normal exam Neck exam: Present: normal inspection Respiratory exam: Present: normal lung sounds bilaterally. Absent: respiratory distress, wheezes Cardiovascular Exam: Present: regular rate, normal rhythm GI/Abdominal exam: Present: soft, tenderness (Patient has mild suprapubic tenderness to palpation). Absent: distended Rectal exam: Present: deferred Extremities exam: Present: normal inspection Back exam: Present: normal inspection. Absent: CVA tenderness (R), CVA tenderness (L) Neurological exam: Present: alert, oriented X3 Psychiatric exam: Present: normal affect, normal mood Skin exam: Present: warm, dry, intact Course Vital Signs 03/05/19 20:13 Temperature 98.4 F Pulse Rate 73 Respiratory 20 Rate Blood Pressure 100/68 O2 Sat by Pulse 100 Oximetry Medical Decision Making - Medical Decision Making Patient presents with a chief complaint of dysuria. On initial evaluation, vitals are stable, patient is in no acute distress. Patient will be evaluated with urinalysis. Given a dose of Pyridium in the emergency department. 9:11 PM Mode evaluation is consistent with urinary tract infection. Patient given her first dose of Bactrim and Pyridium. She was prescribed Bactrim for 7 days and instructed to follow up with primary care 1-2 days, return to the ED symptoms worsen or change. - Lab Data Lab Results 03/05/19 Range/Units 20:35 Urine Color Yellow Urine Appearance Cloudy H (Clear) Urine pH 8.0 (5.0-8.0) Ur Specific [place] 1.018 (1.001-1.035) Urine Protein Trace H (Negative) Urine Glucose (UA) Negative (Negative) Urine Ketones Negative (Negative) Urine Blood Small H (Negative) Urine Nitrite Negative (Negative) Urine Bilirubin Negative (Negative) Urine Urobilinogen <2.0 (<2.0) mg/dL Ur Leukocyte Esterase Large H (Negative) Urine RBC 93 H (0-5) /hpf Urine WBC 149 H (0-5) /hpf Ur Squamous Epith Cells 4 (0-4) /hpf Urine Bacteria Occasional H (None) /hpf Urine Mucus Rare H (None) /hpf Disposition Clinical Impression: Urinary tract infection, Cystitis Disposition: HOME SELF-CARE Condition: Good Instructions (If sedation given, give patient instructions): Urinary Tract Infection in Women (ED) Prescriptions: Sulfamethox-Tmp 800-160Mg [Bactrim DS 800-160 mg] 1 tab PO Q12HR #13 tab Is patient prescribed a controlled substance at d/c from ED?: No Referrals: Yuliet Roche DO [Primary Care Provider] - 1-2 days
[2019-03-05 20:56] LABS: Appearance,Urine Cloudy (Clear); Bacteria,Urine Occasional /hpf; Bilirubin,Urine Negative (Negative); Blood,Urine Small (Negative); Color,Urine Yellow; Glucose,Urine (UA) Negative (Negative); Ketones,Urine Negative (Negative); Leukocyte Esterase,Urine Large (Negative); Mucus,Urine Rare /hpf; Nitrite,Urine Negative (Negative); Protein,Urine Trace (Negative); RBC,Urine 93 /hpf (0-5); Specific Gravity,Urine 1.018 (1.001-1.035); Squamous Epithelial Cell,Urine 4 /hpf (0-4); Urobilinogen,Urine <2.0 mg/dL (<2.0)
[2019-03-05] MEDS ORDERED: SULFAMETHOX-TMP 800-160MG 1 EACH TAB PO STA (21:08)
[2019-03-05 21:20] VITALS: BP 95/70; PULSE 67; TEMP 97.5
== END 2019-03-05 21:20 | disposition home or self-care (01) ==
LOC: EC 19:59
DX: N30.90 Cystitis, unspecified without hematuria (principal); E07.9 Disorder of thyroid, unspecified; Z86.14 Personal history of Methicillin resistant Staphylococcus aureus infection; Z90.49 Acquired absence of other specified parts of digestive tract; Z98.51 Tubal ligation status; Z98.890 Other specified postprocedural states; Z87.891 Personal history of nicotine dependence; Z79.890 Hormone replacement therapy; Z88.1 Allergy status to other antibiotic agents
CPT/HCPCS: 81001; 87086; 99283

== ENCOUNTER → 2020-04-28 | Outpatient (CLI) | payer OTHER ==
--- NOTE | 2020-04-28 14:26 | MM ---
Reason for exam: screening (asymptomatic). Baseline mammogram. History: Took hormonal contraceptives for 7 years beginning at age 11. Physical Findings: Nurse did not find any significant physical abnormalities on exam. MG Screening Mammo w CAD Bilateral CC and MLO view(s) were taken. There are scattered fibroglandular densities. Asymmetric breast tissue upper outer right breast. These results were verbally communicated with the patient and result sheet given to the patient on 04/28/20. ASSESSMENT: Incomplete: need additional imaging evaluation, BI-RAD 0 RECOMMENDATION: Ultrasound of the right breast.
--- NOTE | 2020-04-28 14:28 | USB ---
Reason for exam: additional evaluation requested from abnormal screening. History: Took hormonal contraceptives for 7 years beginning at age 11. Physical Findings: Breast exam preformed at baseline screening. US Breast Workup Limited RT Technologist: Ayala Hu Right limited breast ultrasound including focal area of concern, retroareolar and axilla demonstrates a 0.5 x 0.5 x 0.5cm cystic lesion at 9 o'clock, a 0.7 x 0.9 x 0.5cm cystic lesion at 10 o'clock, a 0.7 x 0.9 x 0.5cm cystic lesion at 11 o'clock with internal echoes and a 0.6 x 0.6 x 0.5cm cystic lesion at the posterior nipple. These results were verbally communicated with the patient and result sheet given to the patient on 04/28/20. ASSESSMENT: Probably benign, BI-RAD 3 RECOMMENDATION: Ultrasound of the right breast in 6 months.
== END ==
LOC: RADMAMWWP 12:39
PROVIDERS: ATTEND Family Medicine
DX: Z12.31 Encounter for screening mammogram for malignant neoplasm of breast (principal); R92.8 Other abnormal and inconclusive findings on diagnostic imaging of breast
CPT/HCPCS: 77067

== ENCOUNTER → 2020-06-05 | Outpatient (CLI) | payer OTHER | END | disposition home or self-care (01) | LOC: LABWHC1 08:40 | PROVIDERS: ATTEND Nurse Practitioner Family | DX: Z20.828 Contact with and (suspected) exposure to other viral communicable diseases (principal) | CPT/HCPCS: U0003; C9803 ==

== ENCOUNTER → 2020-10-30 | Outpatient (CLI) | payer OTHER ==
--- NOTE | 2020-10-31 10:43 | USB ---
Reason for exam: follow-up at short interval from prior study. History: Took hormonal contraceptives for 7 years beginning at age 11. Physical Findings: Nurse did not find any significant physical abnormalities on exam. US Breast Limited RT Right limited breast ultrasound including focal area of concern, retroareolar and axilla demonstrates a 8 x 6 x 8mm oval, cystic lesion at 10 o'clock, a 6 x 5 x 7mm oval, mixed lesion at 11 o'clock, a 8 x 6 x 7mm ova, solid newly identified lesion at 11 o'clock for which a biopsy is recommended and a 8 x 5 x 10mm oval, cystic lesion at 12 o'clock. These results were verbally communicated with the patient and result sheet given to the patient on 10/30/20. ASSESSMENT: Suspicious, BI-RAD 4 RECOMMENDATION: Ultrasound core biopsy of the right breast. (11 o'clock, B/C solid lesion) Called Dr. Roche's office with mammographic findings and has scheduled an appointment for the patient for 11/21/20 at 11:[address] Poe. Biopsy scheduled for 11/27/20 at 9:30. PRELIMINARY REPORT CALLED AND FAXED TO DR. POE ON 10/31/20.
== END | disposition home or self-care (01) ==
LOC: RADUSWWP 08:09
PROVIDERS: ATTEND Family Medicine
DX: N60.01 Solitary cyst of right breast (principal); R92.8 Other abnormal and inconclusive findings on diagnostic imaging of breast

== ENCOUNTER → 2020-11-21 | Outpatient (CLI) | payer OTHER ==
[2020-11-21 11:25] VITALS: BP 96/66; PULSE 74; RESP 18; TEMP 98.6
--- NOTE | 2020-11-21 11:44 | P.GSHP ---
History of Present Illness H&P Date: 11/21/20 Chief Complaint: mammographic change in the right breast Clarissa is a 40 year White female seen in consultation for Dr. Roche regarding a radiographic abnormality in her right breast. She had a bilateral screening mammogram in April 2020 which revealed asymmetric breast tissue in the upper outer quadrant of the right breast. An ultrasound performed on the same day and was felt to be probably benign BIRADS 3 for repeat ultrasound was recommended in 6 months. This was most recently done on . This revealed in the 11 o'clock position a mixed lesion for which ultrasound-guided core biopsy was recommended. The patient does not feel anything of concern in her breasts. She is not complaining of any pain in her breast. She does have some bilateral yellow nipple discharge. It becomes crusting in nature. She has never noticed any blood. She thinks this may be related to her menstrual cycles. Patient recently lost 75 pounds. Caffeine:1-2 cups of coffee/day, no pop nicotine: stopped 8 years ago tate-bromine: none Family History: maternal aunt: lymphoma Hormonal History: menarche: 8 , breast fed: no, age at first : 18 periods irregular, has had an ablation and tubes tied BCP: not since 2006, about 15 years before Surgical History: tubal appy ablation uterine teeth Medical History: Graves disease, radiation twice Social History: nicotine: stopped 8 years ago, used to smoke 1/4 PPD 10 years alcohol: stopped 10 years ago drugs: none - Constitutional Constitutional: Reports sweats - EENT Eyes: denies blurred vision, denies pain Ears: deny: decreased hearing, tinnitus Ears, nose, mouth and throat: Reports vertigo - Breasts Breasts: bilateral: as per HPI - Cardiovascular Cardiovascular: Denies chest pain, Denies shortness of breath - Respiratory Respiratory: Denies cough, Denies 7 - Gastrointestinal Gastrointestinal: Denies abdominal pain, Denies diarrhea, Denies nausea, Denies vomiting - Genitourinary (Female) Comment: UTI - Menstruation Menstruation: Reports cycle variable, Reports period spotting - Musculoskeletal Musculoskeletal: Denies myalgias - Integumentary Integumentary: Denies pruritus, Denies rash - Neurological Neurological: Denies numbness, Denies weakness - Psychiatric Psychiatric: Denies anxiety, Denies depression - Endocrine Endocrine: Denies fatigue, Denies weight change - Hematologic/Lymphatic Comment: none - Allergic/Immunologic Allergic/Immunologic: Reports as per HPI, Reports seasonal allergies Past Medical History Past Medical History: Thyroid Disorder Additional Past Medical History / Comment(s): Hidradenitis suppurativa History of Any Multi-Drug Resistant Organisms: MRSA Date of last positivie culture/infection: 01/12/16 MDRO Source:: groin Past Surgical History: Appendectomy, Tubal Ligation, Uterine Ablation Past Psychological History: No Psychological Hx Reported Past Alcohol Use History: Occasional Past Drug Use History: None Reported Medications and Allergies Home Medications Medication Instructions Recorded Confirmed Type L.acidoph,Paracasei, B.lactis 1 cap PO DAILY 07/03/18 11/17/20 History [Probiotic] Levothyroxine Sodium [Synthroid] 150 mcg PO DAILY 07/03/18 11/17/20 History Multivitamins, Thera [Multivitamin 1 tab PO DAILY 07/03/18 11/17/20 History (formulary)] Allergies Allergy/AdvReac Type Severity Reaction Status Date / Time clarithromycin [From Biaxin] AdvReac Nausea & Verified 11/21/20 11:21 Vomiting Surgical - Exam BMI 27.1 - General no distress - Eyes normal ocular movement - ENT normal nares, no hearing loss - Neck no masses, trachea midline - Respiratory normal respiratory effort, clear to auscultation - Cardiovascular Rhythm: regular Heart Sounds: normal: S1, S2 - Abdomen Abdomen: soft, bowel sounds - Integumentary normal turgor, multiple tattoos - Neurologic no disoriented, no combative - Musculoskeletal normal gait - Psychiatric oriented to time, oriented to person, oriented to place, speech is normal, memory intact breast exam: BRA: 34C inspection: grade 2 ptosis palpation: Right breast: Multi-positional exam fibrocystic changes, no dominant masses or nodules of concern Right axilla: No adenopathy of concern Left breast: Multiple positional exam fibrocystic changes, no dominant masses or nodules of concern Left axilla: No adenopathy of concern no nipple discharge on todays exam Results Mammogram and ultrasound results reviewed with radiology Assessment and Plan Assessment: Impression: 1. Radiographic abnormality right breast at 11:00 2. Fibrocystic breast changes 3. Bilateral nipple discharge believed to be fibrocystic in nature and not elicited on today's examination 4. Family history of lymphoma 5. hypothyroid/ Graves disease Plan: 1. Ultrasound-guided core biopsy right breast 2. Follow-up after ultrasound-guided core biopsy 3. Patient is most likely perimenopausal 4. encouraged to stop caffeine CC: Dr. Roche Encounter 45 minutes time spent in Reviewing medical record, physical examination, and counseling.
== END | disposition home or self-care (01) ==
LOC: WWCWWP 10:46
PROVIDERS: ATTEND Surgery
DX: Z53.9 Procedure and treatment not carried out, unspecified reason (principal)

== ENCOUNTER → 2020-11-27 | Day surgery (SDC) | payer OTHER ==
[2020-11-27 11:35] VITALS: BP 99/66; PULSE 55; RESP 16; TEMP 98.4
--- NOTE | 2020-11-27 15:04 | USB ---
EXAMINATION TYPE: US biopsy breast VAD RT, MG post biopsy diagnostic mammo RT wo CAD DATE OF EXAM: 11/27/2020 CLINICAL HISTORY: 40-year-old female referred for ultrasound-guided biopsy for R92.8 abnormal mammogram. TECHNIQUE: Ultrasound guided core biopsy of the 11:00 right breast. COMPARISON: 10/30/2020 and 04/28/2020 FINDINGS: The procedure of ultrasound guided core biopsy was explained to the patient. Benefits, alternatives, and risks were discussed. An informed consent was then obtained. The 8 mm 11:00 right breast lesion is identified and targeted for biopsy. We note this to demonstrate progressive filling as compared to 04/28/2020. The patient was placed in supine positioning for imaging and for the procedure. The overlying skin was prepped and draped in usual sterile fashion. Lidocaine was used as anesthetic into the skin and subcutaneous tissue up to area of concern in the 11:00 right breast. Under ultrasound guidance, a 13-gauge vacuum-assisted mammotome biopsy gun was used to obtain 4 core samples. Following this, a wing clip was left in lesion. The patient tolerated the procedure well without any immediate complication. The patient was kept in the radiology department for short stay after the procedure and then discharged home in stable condition. Postbiopsy mammogram shows the wing clip at the 11:00 position. This seems to be at the site of asymmetric density on the MLO view. Asymmetric density not as well seen on the cc view. IMPRESSION: Successful, uncomplicated ultrasound guided core biopsy of the indeterminate 11:00 right breast lesion. Full pathology results to follow. Pathology Results: Benign RIGHT BREAST, CORE NEEDLE BIOPSY: Benign fibroadenoma. Recommendation Follow up mammogram of the right breast in 6 months. YENI
== END ==
LOC: RADUSWWP 09:27
PROVIDERS: ATTEND Surgery
DX: D24.1 Benign neoplasm of right breast (principal)
CPT/HCPCS: 88305; 77065; 19083; A4648; J2001

== ENCOUNTER → 2020-12-04 | Outpatient (CLI) | payer OTHER ==
[2020-12-04 10:16] VITALS: BP 107/61; PULSE 77; RESP 18; TEMP 98.7
--- NOTE | 2020-12-04 10:32 | P.PN ---
Subjective Progress Note Date: 12/04/20 Principal diagnosis: fibroadenoma Clarissa is a 40 year old female status post right breast ultrasound guided core biopsy of the right breast. This was done on 11-27-20 and was positive for a fibroadenoma. It was an 8 mm lesion at 11 oclock. She has no complaints related to the biopsy. Objective - Vital Signs Vital signs: Vital Signs Temp 98.7 F 12/04/20 10:14 Pulse 77 12/04/20 10:14 Resp 18 12/04/20 10:14 BP 107/61 12/04/20 10:14 Pulse Ox 98 12/04/20 10:14 Intake & Output 12/03/20 12/04/20 12/04/20 18:59 06:59 18:59 Weight 76.204 kg - Exam BMI 26.7 - Constitutional General appearance: Present: average body habitus - EENT Eyes: Present: EOMI ENT: Present: hearing grossly normal - Neck Neck: Present: normal ROM - Respiratory Respiratory: bilateral: CTA - Cardiovascular Rhythm: regular Heart sounds: normal: S1, S2 - Gastrointestinal General gastrointestinal: Present: soft - Integumentary Integumentary Comment(s): multiple tattoos Integumentary: Present: normal turgor - Musculoskeletal Musculoskeletal: Present: gait normal - Psychiatric Psychiatric: Present: A&O x's 3, appropriate affect, intact judgment & insight - Additional findings Additional findings: Breast exam: Biopsy site clean and dry, no infection or hematoma Assessment and Plan Assessment: Impression: 1. Patient status post ultrasound-guided core biopsy right breast/fibroadenoma 2. Fibrocystic breast changes 3. Bilateral nipple discharge which is not occurring at this time 4. Family history of lymphoma 5. Hypothyroid/Graves' disease Plan: 1. Repeat right breast ultrasound and mammogram in 6 months with position exam at that time 2. again discussed avoiding caffeine, she has stopped and now drinks decaff; feeling well with this Cc: Dr. Roche Encounter 20 minutes time spent in physical examination, reviewing medical records, and counseling.
== END | disposition home or self-care (01) ==
LOC: WWCWWP 09:50
PROVIDERS: ATTEND Surgery
DX: N60.11 Diffuse cystic mastopathy of right breast (principal); D24.1 Benign neoplasm of right breast; E03.9 Hypothyroidism, unspecified; Z83.49 Family history of other endocrine, nutritional and metabolic diseases

== ENCOUNTER → 2021-06-22 | Outpatient (CLI) | payer OTHER ==
--- NOTE | 2021-06-23 08:42 | MM ---
Reason for exam: follow-up at short interval from prior study. Last mammogram was performed 7 months ago. History: Benign US biopsy breast VAD RT of the right breast, November 27, 2020. Took hormonal contraceptives for 7 years beginning at age 11. Physical Findings: Nurse did not find any significant physical abnormalities on exam. MG Diagnostic Mammo RT w CAD CC and MLO view(s) were taken of the right breast. Prior study comparison: October 30, 2020, right breast US breast limited RT. April 28, 2020, bilateral MG screening mammo w CAD. The breast tissue is heterogeneously dense. This may lower the sensitivity of mammography. Previous mammotome biopsy in the right breast. There is no discrete abnormality. These results were verbally communicated with the patient and result sheet given to the patient on 06/22/21. ASSESSMENT: Benign, BI-RAD 2 RECOMMENDATION: Routine screening mammogram of both breasts in 6 months. Back on schedule.
--- NOTE | 2021-06-23 08:46 | USB ---
Reason for exam: follow-up at short interval from prior study. History: Benign US biopsy breast VAD RT of the right breast, November 27, 2020. Took hormonal contraceptives for 7 years beginning at age 11. US Breast Limited RT Right limited breast ultrasound including focal area of concern, retroareolar and axilla demonstrates a 5 x 5 x 5mm round, cystic lesion at 10 o'clock, simple cyst, a 10 x 7 x 11mm oval, cystic lesion at 11 o'clock, simple cyst, a 9 x 5 x 8mm oval, solid, hypoechoic lesion at 11 o'clock and a 6 x 6 x 6mm oval, solid, hypoechoic lesion at 11 o'clock, unchanged from prior biopsied lesion. These results were verbally communicated with the patient and result sheet given to the patient on 06/22/21. ASSESSMENT: Benign, BI-RAD 2 RECOMMENDATION: Routine screening mammogram of both breasts in 6 months. Back on schedule.
== END | disposition home or self-care (01) ==
LOC: RADMAMWWP 13:26
PROVIDERS: ATTEND Surgery
DX: N60.01 Solitary cyst of right breast (principal)
CPT/HCPCS: 77065

== ENCOUNTER → 2021-06-25 | Outpatient (CLI) | payer OTHER ==
[2021-06-25 10:55] VITALS: BP 96/52; PULSE 54; RESP 12; TEMP 98.3
--- NOTE | 2021-06-25 11:12 | P.PN ---
Subjective Progress Note Date: 06/25/21 Principal diagnosis: Follow-up right breast fibroadenoma Clarissa is a 40 year White female seen in consultation for Dr. Roche regarding a radiographic abnormality in her right breast. She had a bilateral screening mammogram in April 2020 which revealed asymmetric breast tissue in the upper outer quadrant of the right breast. An ultrasound performed on the same day and was felt to be probably benign BIRADS 3 for repeat ultrasound was recommended in 6 months. This was done on . This revealed in the 11 o'clock position a mixed lesion for which ultrasound-guided core biopsy was recommended. The patient did not feel anything of concern in her breasts. She was not complaining of any pain in her breast. She did have some bilateral yellow nipple discharge. It becomes crusting in nature. She has never noticed any blood. She thinks this may be related to her menstrual cycles. Patient recently lost 75 pounds. She had a ultrasound core biopsy [place] [id number]. This was positive for fibroadenoma. She had a repeat right breast mammogram and ultrasound performed earlier this week. Verbal report as per the patient is that nothing had grown. Caffeine:1-2 cups of coffee/day, no pop nicotine: stopped 8 years ago tate-bromine: none Family History: maternal aunt: lymphoma Hormonal History: menarche: 8 , breast fed: no, age at first : 18 periods irregular, has had an ablation and tubes tied BCP: not since 2006, about 15 years before Surgical History: tubal appy ablation uterine teeth Medical History: Graves disease, radiation twice Social History: nicotine: stopped 8 years ago, used to smoke 1/4 PPD 10 years alcohol: stopped 10 years ago drugs: none - Constitutional Constitutional: Reports sweats - EENT Eyes: denies blurred vision, denies pain Ears: deny: decreased hearing, tinnitus Ears, nose, mouth and throat: Reports vertigo - Breasts Breasts: bilateral: as per HPI - Cardiovascular Cardiovascular: Denies chest pain, Denies shortness of breath - Respiratory Respiratory: Denies cough - Gastrointestinal Gastrointestinal: Denies abdominal pain, Denies diarrhea, Denies nausea, Denies vomiting - Genitourinary (Female) Comment: UTI - Menstruation Menstruation: Reports cycle variable, Reports period spotting - Musculoskeletal Musculoskeletal: Denies myalgias - Integumentary Integumentary: Denies pruritus, Denies rash - Neurological Neurological: Denies numbness, Denies weakness - Psychiatric Psychiatric: Denies anxiety, Denies depression - Endocrine Endocrine: Denies fatigue, Denies weight change - Hematologic/Lymphatic Comment: none - Allergic/Immunologic Allergic/Immunologic: Reports as per HPI, Reports seasonal allergies Objective - Vital Signs Vital signs: Vital Signs Temp 98.3 F 06/25/21 10:49 Pulse 54 L 06/25/21 10:49 Resp 12 06/25/21 10:49 BP 96/52 06/25/21 10:49 Pulse Ox 100 06/25/21 10:49 Intake & Output 06/24/21 06/25/21 06/25/21 18:59 06:59 18:59 Weight 76.657 kg - Constitutional General appearance: Present: cooperative - EENT Eyes: Present: EOMI ENT: Present: hearing grossly normal - Neck Neck: Present: normal ROM - Respiratory Respiratory: bilateral: CTA - Cardiovascular Rhythm: regular Heart sounds: normal: S1, S2 - Gastrointestinal General gastrointestinal: Present: soft - Integumentary Integumentary: Present: normal turgor - Musculoskeletal Musculoskeletal: Present: gait normal - Psychiatric Psychiatric: Present: A&O x's 3, appropriate affect, intact judgment & insight - Additional findings Additional findings: Breast Exam: BRA: 34C inspection: Bilateral grade 2 ptosis Palpation: Right breast: Multi-positional exam fibrocystic changes, positive axillary breast tissue, no dominant masses or nodules of concern Right axilla: Shoddy adenopathy Left breast: Multi-positional exam fibrocystic changes, no dominant masses or nodules of concern Left axilla: No adenopathy of concern Assessment and Plan Assessment: Impression: 1. Stable fibroadenoma right breast 2. Fibrocystic breast changes Plan: 1. Repeat bilateral mammogram in 1 year with physician exam at that time 2. Patient to follow up sooner if she notes any changes in the breast for which she is concerned CC: Marie VICK
== END ==
LOC: WWCWWP 10:34
PROVIDERS: ATTEND Surgery
DX: D24.1 Benign neoplasm of right breast (principal); Z87.891 Personal history of nicotine dependence; Z88.8 Allergy status to other drugs, medicaments and biological substances

== ENCOUNTER → 2022-01-18 | Outpatient (CLI) | payer BC ==
--- NOTE | 2022-01-19 11:46 | MM ---
Reason for exam: screening (asymptomatic). Last mammogram was performed 7 months ago. History: Benign US biopsy breast VAD RT of the right breast, November 27, 2020. Took hormonal contraceptives for 7 years beginning at age 11. Physical Findings: A clinical breast exam by your physician is recommended on an annual basis and results should be correlated with mammographic findings. MG 3D Screening Mammo W/Cad Bilateral CC and MLO view(s) were taken. Prior study comparison: June 22, 2021, right breast MG diagnostic mammo RT w CAD. November 27, 2020, right breast MG diagnostic mammo RT wo CAD. The breast tissue is heterogeneously dense. This may lower the sensitivity of mammography. There is no discrete abnormality. No significant changes when compared with prior studies. ASSESSMENT: Negative, BI-RAD 1 RECOMMENDATION: Routine screening mammogram of both breasts in 1 year.
== END | disposition home or self-care (01) ==
LOC: RADMAMWWP 08:09
PROVIDERS: ATTEND Surgery
DX: Z12.31 Encounter for screening mammogram for malignant neoplasm of breast (principal)
CPT/HCPCS: 77063; 77067

== ENCOUNTER → 2022-01-21 | Outpatient (CLI) | payer BC ==
[2022-01-21 12:52] VITALS: BP 95/60; PULSE 75; RESP 18; TEMP 98.8
--- NOTE | 2022-01-21 13:11 | P.PN ---
Subjective Progress Note Date: 01/21/22 Principal diagnosis: fibrocystic breast changes Clarissa is a 41 year old white female who is status post a core biopsy of the right breast on 11-27-21. This was a fibroadenoma. It was 8 mm in size at the 11 o'clock position. She underwent a bilateral 3D mammogram on . No lesions of concern were identified and this was considered negative BIRADS 1. She states she has some fullness under her right arm. She is not complaining of any new lumps masses or nodules of concern in either breast. She is not complaining of any nipple discharge. Caffeine:1-2 cups of coffee/day, no pop nicotine: stopped 8 years ago tate-bromine: none Family History: maternal aunt: lymphoma Hormonal History: menarche: 8 , breast fed: no, age at first : 18 periods irregular, has had an ablation and tubes tied BCP: not since 2006, about 15 years before Surgical History: tubal appy ablation uterine teeth Medical History: Graves disease, radiation twice Social History: nicotine: stopped 8 years ago, used to smoke 1/4 PPD 10 years alcohol: stopped 10 years ago drugs: none - Constitutional Constitutional: Reports sweats - EENT Eyes: denies blurred vision, denies pain Ears: deny: decreased hearing, tinnitus Ears, nose, mouth and throat: Reports vertigo - Breasts Breasts: bilateral: as per HPI - Cardiovascular Cardiovascular: Denies chest pain, Denies shortness of breath - Respiratory Respiratory: Denies cough - Gastrointestinal Gastrointestinal: Denies abdominal pain, Denies diarrhea, Denies nausea, Denies vomiting - Genitourinary (Female) Comment: UTI - Menstruation Menstruation: Reports cycle variable, Reports period spotting - Musculoskeletal Musculoskeletal: Denies myalgias - Integumentary Integumentary: Denies pruritus, Denies rash - Neurological Neurological: Denies numbness, Denies weakness - Psychiatric Psychiatric: Denies anxiety, Denies depression - Endocrine Endocrine: Denies fatigue, Denies weight change - Hematologic/Lymphatic Comment: none - Allergic/Immunologic Allergic/Immunologic: Reports as per HPI, Reports seasonal allergies Objective - Vital Signs Vital signs: Vital Signs Temp 98.8 F 01/21/22 12:49 Pulse 75 01/21/22 12:49 Resp 18 01/21/22 12:49 BP 95/60 01/21/22 12:49 Pulse Ox 99 01/21/22 12:49 Intake & Output 01/20/22 01/21/22 01/21/22 18:59 06:59 18:59 Weight 74.843 kg - Exam BMI 26.6 - Constitutional General appearance: Present: cooperative - EENT Eyes: Present: EOMI ENT: Present: hearing grossly normal - Neck Neck: Present: normal ROM - Respiratory Respiratory: bilateral: CTA - Cardiovascular Rhythm: regular Heart sounds: normal: S1, S2 - Gastrointestinal General gastrointestinal: Present: soft - Integumentary Integumentary: Present: normal turgor - Musculoskeletal Musculoskeletal: Present: gait normal - Psychiatric Psychiatric: Present: A&O x's 3, appropriate affect, intact judgment & insight - Additional findings Additional findings: Breast Exam: BRA: 34C inspection: multiple tattoos over chest and upper arms; bilateral grade 2 ptosis Patient: Right breast: Multi-positional exam fibrocystic changes no dominant masses or nodules of concern Right axilla: No adenopathy of concern Left breast: Multiple positional exam fibrocystic changes no dominant masses or nodules of concern Left axilla: No adenopathy of concern Assessment and Plan Plan: Impression: Recent bilateral mammogram benign BIRADS 1 Fibrocystic breast changes Known fibroadenoma right breast nonpalpable Plan: Repeat bilateral mammogram 1 year known fibroadenoma right breast at 11:00 is not palpable at this time; prior measurements 06-22-21 approximately 6 x 6 mm at this time patient is going to defer ultrasound to determine the size and if it becomes symptomatic or palpable we will pursue it further Follow-up in 1 year CC: Jenniffer Mcarthur
== END ==
LOC: WWCWWP 12:24
PROVIDERS: ATTEND Surgery
DX: Z12.31 Encounter for screening mammogram for malignant neoplasm of breast (principal); N60.12 Diffuse cystic mastopathy of left breast; N60.11 Diffuse cystic mastopathy of right breast; D24.1 Benign neoplasm of right breast; Z87.891 Personal history of nicotine dependence; Z88.1 Allergy status to other antibiotic agents

== ENCOUNTER → 2023-01-19 | Outpatient (CLI) | payer BC ==
--- NOTE | 2023-01-19 15:11 | MM ---
Reason for Exam: Clinical finding. Last screening mammogram was performed 12 month(s) ago. Patient History: Menarche at age 8. First Full-Term at age 18. Perimenopausal. Hormonal Contraceptives, starting at age 11 for 7 years. 11/27/2020, Benign Core Biopsy on the right side. Risk Values: Na 5 year model risk: 1.2%. NCI Lifetime model risk: 11.5%. Tissue Density: The breast tissue is heterogeneously dense. This may lower the sensitivity of mammography. Findings: Analyzed By CAD. There is an equal density circumscribed oval mass measuring 6 mm within the left breast at 12:00 at middle depth. No suspicious calcifications, or architectural distortion within either breast. Biopsy clip within the right breast. Overall Assessment: Incomplete: need additional imaging evaluation, BI-RAD 0 Management: Diagnostic Breast Ultrasound of the left breast. A clinical breast exam by your physician is recommended on an annual basis and results should be correlated with mammographic findings. This exam should not preclude additional follow-up of suspicious palpable abnormalities. Results were given to the patient verbally at the time of exam. Electronically signed and approved by: Erich Carmichael D.O.
--- NOTE | 2023-01-19 15:11 | USB ---
Reason for Exam: Additional evaluation requested from abnormal screening. Patient History: Menarche at age 8. First Full-Term at age 18. Perimenopausal. Hormonal Contraceptives, starting at age 11 for 7 years. 11/27/2020, Benign Core Biopsy on the right side. Risk Values: Na 5 year model risk: 1.2%. NCI Lifetime model risk: 11.5%. Technique: Method: Targeted. Prior Study Comparison: 11/27/2020 Right Diagnostic Mammogram, [facility]. 06/22/2021 Right Diagnostic Mammogram, [facility]. 01/18/2022 Bilateral Screening Mammogram, [facility]. Findings: The upper section of the breast of the left breast, the axilla of the left breast and the retroareolar of the left breast were scanned. Targeted ultrasound of the left breast at 12:00 was performed with additional evaluation the nipple and axilla. There is a simple cyst within the left breast at 12:00 5 cm from the nipple corresponding to mammographic abnormality.. Overall Assessment: Benign, BI-RAD 2 Management: Screening Mammogram of both breasts in 1 year. A clinical breast exam by your physician is recommended on an annual basis and results should be correlated with mammographic findings. This exam should not preclude additional follow-up of suspicious palpable abnormalities. Results were given to the patient verbally at the time of exam. Electronically signed and approved by: Erich Carmichael D.O.
== END | disposition home or self-care (01) ==
LOC: RADMAMWWP 08:07
PROVIDERS: ATTEND Surgery
DX: R92.8 Other abnormal and inconclusive findings on diagnostic imaging of breast (principal)
CPT/HCPCS: 77062; 77066

== ENCOUNTER 2023-06-04 16:57 | Emergency (ER) | payer BC ==
[2023-06-04 17:04] VITALS: RESP 18; TEMP 99
--- NOTE | 2023-06-04 17:53 | ED ---
General Adult HPI - General Chief complaint: Weakness Stated complaint: WEAKNESS,PAIN Time Seen by Provider: 06/04/23 17:13 Source: patient Mode of arrival: ambulatory Limitations: no limitations - History of Present Illness Initial comments: This patient is a 42-year-old woman who presents with complaint that she has been having myalgias and arthralgias going back approximately 2-3 days. She states that if she is not moving for some time and then goes to get up she has pain to the bilateral joints of the legs, hips. She also will have pain along the border of the sternum on both sides. She initially thought that this was due to work but now it seems more severe than she usually gets due to working. She does note that approximately a week prior to the onset she did have what she thought was case of food poisoning. She had about 15 episodes of diarrhea, and believed was related to something she had eaten. There was no bloody or tarry stool. She states those symptoms have resolved. She has not noted overt fever though she has felt warm and flushed. Onset/Timin -: days(s) Location: left, right, lower extremity Radiation: non-radiation Quality: aching Consistency: intermittent Improves with: none Worsens with: movement Associated Symptoms: malaise Treatments Prior to Arrival: NSAID - Related Data Home Medications Medication Instructions Recorded Confirmed Albuterol Inhaler [Ventolin Hfa 2 puff INHALATION RT-Q6H PRN 06/04/23 06/04/23 Inhaler] Levothyroxine Sodium [Synthroid] 150 mcg PO DIRECTED 06/04/23 06/04/23 Previous Rx's Medication Instructions Recorded predniSONE [Deltasone] 20 mg PO BID #8 tab 06/04/23 Allergies Allergy/AdvReac Type Severity Reaction Status Date / Time clarithromycin [From Biaxin] AdvReac Nausea & Verified 06/04/23 17:04 Vomiting Review of Systems ROS Statement: Those systems with pertinent positive or pertinent negative responses have been documented in the HPI. ROS Other: All systems not noted in ROS Statement are negative. Constitutional: Reports: as per HPI. Denies: fever, chills Respiratory: Denies: cough, dyspnea Cardiovascular: Denies: chest pain, palpitations, edema Gastrointestinal: Reports: as per HPI, diarrhea. Denies: abdominal pain, nausea, vomiting Genitourinary: Denies: dysuria, hematuria Musculoskeletal: Denies: back pain Skin: Denies: rash Neurological: Denies: headache, weakness, numbness Past Medical History Past Medical History: Thyroid Disorder Additional Past Medical History / Comment(s): Hidradenitis suppurativa History of Any Multi-Drug Resistant Organisms: MRSA Date of last positivie culture/infection: 01/12/16 MDRO Source:: groin Past Surgical History: Appendectomy, Tubal Ligation, Uterine Ablation Past Psychological History: No Psychological Hx Reported Smoking Status: Former smoker Past Alcohol Use History: None Reported Past Drug Use History: None Reported General Exam Limitations: no limitations General appearance: alert, in no apparent distress Head exam: Present: atraumatic, normocephalic Eye exam: Present: normal appearance. Absent: scleral icterus, conjunctival injection ENT exam: Present: normal oropharynx Neck exam: Present: normal inspection Respiratory exam: Present: normal lung sounds bilaterally. Absent: respiratory distress, wheezes, rales, rhonchi, stridor Cardiovascular Exam: Present: regular rate, normal rhythm, normal heart sounds. Absent: systolic murmur, diastolic murmur, rubs, gallop GI/Abdominal exam: Present: soft. Absent: distended, tenderness, guarding, alka ound, rigid, mass Extremities exam: Present: normal inspection, normal capillary refill. Absent: pedal edema, calf tenderness Back exam: Present: normal inspection. Absent: CVA tenderness (R), CVA tenderness (L) Neurological exam: Present: alert Skin exam: Present: warm, dry, intact, normal color. Absent: rash Course Vital Signs 06/04/23 06/04/23 16:59 20:11 Temperature 99.0 F Pulse Rate 85 75 Respiratory 18 18 Rate Blood Pressure 112/61 91/58 O2 Sat by Pulse 98 99 Oximetry Medical Decision Making - Medical Decision Making This patient is 42-year-old woman presenting with polyarthralgias, the workup during her course here not revealing definite etiology, there are labs that are pending. I discussed the results with the patient, including the appropriate further care and follow-up probably with the cnc maintenance mechanic, as well as return parameters. Was pt. sent in by a medical professional or institution (, PA, BSS SOLUTION ARCHITECT, urgent care, hospital, or long term...) When possible be specific @ -[No] Did you speak to anyone other than the patient for history (EMS, parent, family, police, friend...)? What history was obtained from this source @ -[No] Did you review nursing and triage notes (agree or disagree)? Why? @ -[I reviewed and agree with nursing and triage notes] Were old charts reviewed (outside hosp., previous admission, EMS record, old EKG, old radiological studies, urgent care reports/EKG's, long term records)? Report findings @ -[No old charts were reviewed] Differential Diagnosis (chest pain, altered mental status, abdominal pain women, abdominal pain men, vaginal bleeding, weakness, fever, dyspnea, syncope, headache, dizziness, GI bleed, back pain, seizure, CVA, palpatations, mental health, musculoskeletal)? @ -[Differential diagnosis for the polyarthralgias includes infectious arthritis, inflammatory arthritis, vasculitis, osteoarthritis, viral syndrome, amongst other conditions EKG interpreted by me (3pts min.). @ -[As above] X-rays interpreted by me (1pt min.). @ -[None done] CT interpreted by me (1pt min.). @ -[None done] U/S interpreted by me (1pt. min.). @ -[None done] What testing was considered but not performed or refused? (CT, X-rays, U/S, labs)? Why? @ -[None] What meds were considered but not given or refused? Why? @ -[None] Did you discuss the management of the patient with other professionals (professionals i.e. , PA, BSS SOLUTION ARCHITECT, lab, RT, psych nurse, social worker clinical, skid strapper, te acher, job placement officer, leather case finisher)? Give summary @ -[No] Was smoking cessation discussed for >3mins.? @ -[No] Was critical care preformed (if so, how long)? @ -[No] Were there social determinants of health that impacted care today? How? (Homelessness, low income, unemployed, alcoholism, drug addiction, transportation, low edu. Level, literacy, decrease access to med. care, ch[facility], re hab)? @ -[No] Was there de-escalation of care discussed even if they declined (Discuss DNR or withdrawal of care, Hospice)? DNR status @ -[No] What co-morbidities impacted this encounter? (DM, HTN, Smoking, COPD, CAD, Cancer, CVA, ARF, Chemo, Hep., AIDS, mental health diagnosis, sleep apnea, morbid obesity)? @ -[None] Was patient admitted / discharged? Hospital course, mention meds given and route, prescriptions, significant lab abnormalities, going to OR and other pertinent info. @ -As above, patient given course of symptomatic medications Undiagnosed new problem with uncertain prognosis? @ -[No] Drug Therapy requiring intensive monitoring for toxicity (Heparin, Nitro, Insulin, Cardizem)? @ -[No] Were any procedures done? @ -[No] Diagnosis/symptom? @ -[Acute polyarthralgias Acute, or Chronic, or Acute on Chronic? @ -[Acute Uncomplicated (without systemic symptoms) or Complicated (systemic symptoms)? @ -[Uncomplicated Side effects of treatment? @ -[No] Exacerbation, Progression, or Severe Exacerbation? @ -[No] Poses a threat to life or bodily function? How? (Chest pain, USA, MS, pneumonia, PE, COPD, DKA, ARF, appy, cholecystitis, CVA, Diverticulitis, Homicidal, Suicidal, threat to staff... and all critical care pts) @ -[There is low likelihood though in some cases polyarthralgias will progress to severe disabling arthritis - Lab Data Result diagrams: 06/04/23 18:06 06/04/23 18:06 Lab Results 06/04/23 06/04/23 06/04/23 Range/Units 18:06 18:06 18:06 WBC 7.0 (3.8-10.6) k/uL RBC 4.06 (3.80-5.40) m/uL Hgb 12.9 (11.4-16.0) gm/dL Hct 37.1 (34.0-46.0) % MCV 91.4 (80.0-100.0) fL MCH 31.7 (25.0-35.0) pg MCHC 34.7 (31.0-37.0) g/dL RDW 11.9 (11.5-15.5) % Plt Count 218 (150-450) k/uL MPV 8.7 Neutrophils % 72 % Lymphocytes % 19 % Monocytes % 6 % Eosinophils % 2 % Basophils % 0 % Neutrophils # 5.0 (1.3-7.7) k/uL Lymphocytes # 1.3 (1.0-4.8) k/uL Monocytes # 0.4 (0-1.0) k/uL Eosinophils # 0.1 (0-0.7) k/uL Basophils # 0.0 (0-0.2) k/uL Sodium 140 (137-145) mmol/L Potassium 3.5 (3.5-5.1) mmol/L Chloride 105 (98-107) mmol/L Carbon Dioxide 30 (22-30) mmol/L Anion Gap 5 mmol/L BUN 14 (7-17) mg/dL Creatinine 0.76 (0.52-1.04) mg/dL Est GFR (CKD-EPI)AfAm >90 (>60 ml/min/1.73 sqM) Est GFR (CKD-EPI)NonAf >90 (>60 ml/min/1.73 sqM) Glucose 103 H (74-99) mg/dL Calcium 9.1 (8.4-10.2) mg/dL Total Bilirubin 0.4 (0.2-1.3) mg/dL AST 20 (14-36) U/L ALT 17 (4-34) U/L Alkaline Phosphatase 62 (38-126) U/L C-Reactive Protein 2.0 H (<1.0) mg/dL Total Protein 7.0 (6.3-8.2) g/dL Albumin 4.0 (3.5-5.0) g/dL Rheumatoid Factor <15 (0-15) IU/mL HALEY Screen POSITIVE A (Negative) HALEY Titer 1:640 HALEY Pattern SPK Coronavirus (PCR) (Not Detectd) 06/04/23 Range/Units 18:27 WBC (3.8-10.6) k/uL RBC (3.80-5.40) m/uL Hgb (11.4-16.0) gm/dL Hct (34.0-46.0) % MCV (80.0-100.0) fL MCH (25.0-35.0) pg MCHC (31.0-37.0) g/dL RDW (11.5-15.5) % Plt Count (150-450) k/uL MPV Neutrophils % % Lymphocytes % % Monocytes % % Eosinophils % % Basophils % % Neutrophils # (1.3-7.7) k/uL Lymphocytes # (1.0-4.8) k/uL Monocytes # (0-1.0) k/uL Eosinophils # (0-0.7) k/uL Basophils # (0-0.2) k/uL Sodium (137-145) mmol/L Potassium (3.5-5.1) mmol/L Chloride (98-107) mmol/L Carbon Dioxide (22-30) mmol/L Anion Gap mmol/L BUN (7-17) mg/dL Creatinine (0.52-1.04) mg/dL Est GFR (CKD-EPI)AfAm (>60 ml/min/1.73 sqM) Est GFR (CKD-EPI)NonAf (>60 ml/min/1.73 sqM) Glucose (74-99) mg/dL Calcium (8.4-10.2) mg/dL Total Bilirubin (0.2-1.3) mg/dL AST (14-36) U/L ALT (4-34) U/L Alkaline Phosphatase (38-126) U/L C-Reactive Protein (<1.0) mg/dL Total Protein (6.3-8.2) g/dL Albumin (3.5-5.0) g/dL Rheumatoid Factor (0-15) IU/mL HALEY Screen (Negative) HALEY Titer HALEY Pattern Coronavirus (PCR) Not Detected (Not Detectd) Disposition Clinical Impression: Polyarthralgia Disposition: HOME SELF-CARE Condition: Good Instructions (If sedation given, give patient instructions): Arthralgia (ED) Prescriptions: predniSONE [Deltasone] 20 mg PO BID #8 tab Is patient prescribed a controlled substance at d/c from ED?: No Referrals: Yuliet Roche DO [Primary Care Provider] - 1-2 days
[2023-06-04 18:27] LABS: Basophils % (A) 0 %; Eosinophils # (A) 0.1 k/uL (0-0.7); Eosinophils % (A) 2 %; HCT 37.1 % (34.0-46.0); HGB 12.9 gm/dL (11.4-16.0); Lymphocytes # (A) 1.3 k/uL (1.0-4.8); Lymphocytes % (A) 19 %; MCH 31.7 pg (25.0-35.0); MCHC 34.7 g/dL (31.0-37.0); MCV 91.4 fL (80.0-100.0); Mean Platelet Volume 8.7; Monocytes # (A) 0.4 k/uL (0-1.0); Monocytes % (A) 6 %; Neutrophils % (A) 72 %; Platelet Count 218 k/uL (150-450); RBC 4.06 m/uL (3.80-5.40); RDW 11.9 % (11.5-15.5)
[2023-06-04 18:49] LABS: ALT 17 U/L (4-34); AST 20 U/L (14-36); African American GFR (CKD) >90 (>60 ml/min/1.73 sqM); Alkaline Phosphatase 62 U/L (38-126); Anion Gap 5 mmol/L; Blood Urea Nitrogen 14 mg/dL (7-17); Calcium 9.1 mg/dL (8.4-10.2); Carbon Dioxide 30 mmol/L (22-30); Chloride 105 mmol/L (98-107); Glucose 103 mg/dL (74-99); Non-African American GFR(CKD) >90 (>60 ml/min/1.73 sqM); Potassium 3.5 mmol/L (3.5-5.1); Sodium 140 mmol/L (137-145); Total Bilirubin 0.4 mg/dL (0.2-1.3)
[2023-06-04] MEDS ORDERED: predniSONE 20 MG TAB PO STA (19:54)
[2023-06-04 20:12] VITALS: BP 91/58; PULSE 75
[2023-06-05 07:38] LABS: Rheumatoid Factor, Qnt <15 IU/mL (0-15)
[2023-06-07 15:19] LABS: ANA Pattern SPK
== END 2023-06-04 20:12 | disposition home or self-care (01) ==
LOC: EC 16:57
DX: M30.0 Polyarteritis nodosa (principal); Z87.891 Personal history of nicotine dependence; E07.9 Disorder of thyroid, unspecified; Z79.890 Hormone replacement therapy; Z20.822 Contact with and (suspected) exposure to COVID-19
CPT/HCPCS: 36415; 80053; 85025; 86140; 86431; 86038; 86039; 87635; 99285; J7512

== ENCOUNTER → 2023-11-24 | Outpatient (CLI) | payer BC ==
[2023-11-24 15:39] LABS: Basophils # (A) 0.02 X 10*3/uL (0.00-0.10); Basophils % (A) 0.5 %; Eosinophils # (A) 0.18 X 10*3/uL (0.04-0.35); Eosinophils % (A) 4.4 %; HCT 43.4 % (37.2-46.3); HGB 14.3 g/dL (12.0-15.0); Lymphocytes # (A) 1.55 X 10*3/uL (0.90-5.00); Lymphocytes % (A) 38.1 %; MCH 30.3 pg (27.0-32.0); MCHC 32.9 g/dL (32.0-37.0); MCV 91.9 FL (80.0-97.0); Mean Platelet Volume 10.9 FL (9.5-12.2); Monocytes # (A) 0.44 X 10*3/uL (0.20-1.00); Monocytes % (A) 10.8 %; NRBC Per 100 WBC 0 X 10*3/uL (0.00-0.01); Neutrophils # (A) 1.86 X 10*3/uL (1.80-7.70); Neutrophils % (A) 45.7 %; Platelet Count 266 X 10*3/uL (140-440); RBC 4.72 X 10*6/uL (4.10-5.20); RDW 11.7 % (11.5-14.5); WBC 4.07 X 10*3/uL (4.50-10.00)
[2023-11-24 15:49] LABS: ALT 16 U/L (8-44); AST 17 U/L (13-35); Albumin 4.4 g/dL (3.8-4.9); Albumin/Globulin Ratio 1.91 Ratio (1.60-3.17); Alkaline Phosphatase 48 U/L (41-126); BUN/Creat Ratio 17.88 Ratio (12.00-20.00); Blood Urea Nitrogen 14.3 mg/dL (9.0-27.0); C Reactive Protein <0.30 mg/dL (0.00-0.80); Calcium 9.8 mg/dL (8.7-10.3); Carbon Dioxide 26.9 mmol/L (21.6-31.8); Chloride 106 mmol/L (96-109); Globulin 2.3 g/dL (1.6-3.3); Glucose 96 mg/dL (70-110); Potassium 4.8 mmol/L (3.5-5.5); Sodium 142 mmol/L (135-145); Total Bilirubin 0.4 mg/dL (0.3-1.2); Total Protein 6.7 g/dL (6.2-8.2)
[2023-11-24 16:41] LABS: Erythrocyte Sedimentation Rate <1 mm/Hr (0-20)
== END | disposition home or self-care (01) ==
LOC: LABWHC1 08:17
PROVIDERS: ATTEND Internal Medicine Rheumatology
DX: M06.4 Inflammatory polyarthropathy (principal)
CPT/HCPCS: 36415; 80053; 85025; 85652; 86140

== ENCOUNTER → 2024-02-20 | Outpatient (CLI) | payer BC ==
[2024-02-20 14:36] LABS: Basophils # (A) 0.03 X 10*3/uL (0.00-0.10); Basophils % (A) 0.8 %; Eosinophils # (A) 0.15 X 10*3/uL (0.04-0.35); Eosinophils % (A) 3.9 %; HCT 42.4 % (37.2-46.3); HGB 14.1 g/dL (12.0-15.0); MCH 30.9 pg (27.0-32.0); MCHC 33.3 g/dL (32.0-37.0); Mean Platelet Volume 11.3 FL (9.5-12.2); Monocytes # (A) 0.44 X 10*3/uL (0.20-1.00); Monocytes % (A) 11.5 %; NRBC Per 100 WBC 0 X 10*3/uL (0.00-0.01); Neutrophils # (A) 1.89 X 10*3/uL (1.80-7.70); Neutrophils % (A) 49.5 %; Platelet Count 208 X 10*3/uL (140-440); RBC 4.56 X 10*6/uL (4.10-5.20); RDW 11.5 % (11.5-14.5); WBC 3.82 X 10*3/uL (4.50-10.00)
[2024-02-20 14:55] LABS: ALT 14 U/L (8-44); AST 15 U/L (13-35); Albumin 4.4 g/dL (3.8-4.9); Albumin/Globulin Ratio 1.83 Ratio (1.60-3.17); Alkaline Phosphatase 41 U/L (41-126); BUN/Creat Ratio 18.88 Ratio (12.00-20.00); Blood Urea Nitrogen 15.1 mg/dL (9.0-27.0); C Reactive Protein <0.30 mg/dL (0.00-0.80); Calcium 9.5 mg/dL (8.7-10.3); Carbon Dioxide 26.8 mmol/L (21.6-31.8); Chloride 104 mmol/L (96-109); Globulin 2.4 g/dL (1.6-3.3); Glucose 89 mg/dL (70-110); Sodium 139 mmol/L (135-145); Total Bilirubin 0.6 mg/dL (0.3-1.2); Total Protein 6.8 g/dL (6.2-8.2)
[2024-02-20 17:00] LABS: Erythrocyte Sedimentation Rate <1 mm/Hr (0-20)
== END | disposition home or self-care (01) ==
LOC: LABWHC1 09:15
PROVIDERS: ATTEND Internal Medicine Rheumatology
DX: M06.4 Inflammatory polyarthropathy (principal)
CPT/HCPCS: 36415; 80053; 85025; 85652; 86140

== ENCOUNTER → 2024-04-30 | Outpatient (CLI) | payer BC ==
[2024-04-30 18:23] LABS: Basophils # (A) 0.02 X 10*3/uL (0.00-0.10); Basophils % (A) 0.3 %; Eosinophils # (A) 0.11 X 10*3/uL (0.04-0.35); Eosinophils % (A) 1.9 %; HCT 38.1 % (37.2-46.3); HGB 13.1 g/dL (12.0-15.0); Lymphocytes # (A) 1.55 X 10*3/uL (0.90-5.00); Lymphocytes % (A) 26.1 %; MCH 31.3 pg (27.0-32.0); MCHC 34.4 g/dL (32.0-37.0); MCV 90.9 FL (80.0-97.0); Mean Platelet Volume 11.6 FL (9.5-12.2); Monocytes # (A) 0.47 X 10*3/uL (0.20-1.00); Monocytes % (A) 7.9 %; NRBC Per 100 WBC 0 X 10*3/uL (0.00-0.01); Neutrophils # (A) 3.73 X 10*3/uL (1.80-7.70); Platelet Count 250 X 10*3/uL (140-440); RBC 4.19 X 10*6/uL (4.10-5.20); RDW 11.9 % (11.5-14.5); WBC 5.93 X 10*3/uL (4.50-10.00)
[2024-04-30 19:05] LABS: ALT 15 U/L (8-44); AST 17 U/L (13-35); Albumin 4.5 g/dL (3.8-4.9); Albumin/Globulin Ratio 2.05 Ratio (1.60-3.17); Alkaline Phosphatase 48 U/L (41-126); Blood Urea Nitrogen 24.4 mg/dL (9.0-27.0); C Reactive Protein <0.30 mg/dL (0.00-0.80); Calcium 9.6 mg/dL (8.7-10.3); Carbon Dioxide 26.2 mmol/L (21.6-31.8); Chloride 102 mmol/L (96-109); Globulin 2.2 g/dL (1.6-3.3); Glucose 87 mg/dL (70-110); Potassium 4.5 mmol/L (3.5-5.5); Sodium 139 mmol/L (135-145); Total Bilirubin 0.6 mg/dL (0.3-1.2); Total Protein 6.7 g/dL (6.2-8.2)
[2024-04-30 19:18] LABS: Erythrocyte Sedimentation Rate <1 mm/Hr (0-20)
== END | disposition home or self-care (01) ==
LOC: LABWHC1 12:48
PROVIDERS: ATTEND Physician Assistant
DX: M06.4 Inflammatory polyarthropathy (principal)
CPT/HCPCS: 36415; 80053; 85025; 85652; 86140

== ENCOUNTER → 2024-08-30 | Outpatient (CLI) | payer BC ==
[2024-08-30 16:01] LABS: Basophils # (A) 0.02 X 10*3/uL (0.00-0.10); Basophils % (A) 0.4 %; Eosinophils # (A) 0.09 X 10*3/uL (0.04-0.35); Eosinophils % (A) 1.8 %; HCT 37.6 % (37.2-46.3); HGB 12.8 g/dL (12.0-15.0); Lymphocytes # (A) 1.52 X 10*3/uL (0.90-5.00); Lymphocytes % (A) 29.7 %; MCH 31.5 pg (27.0-32.0); MCV 92.6 FL (80.0-97.0); Mean Platelet Volume 11.2 FL (9.5-12.2); Monocytes # (A) 0.53 X 10*3/uL (0.20-1.00); Monocytes % (A) 10.4 %; NRBC Per 100 WBC 0 X 10*3/uL (0.00-0.01); Neutrophils # (A) 2.94 X 10*3/uL (1.80-7.70); Neutrophils % (A) 57.3 %; Platelet Count 228 X 10*3/uL (140-440); RBC 4.06 X 10*6/uL (4.10-5.20); RDW 11.5 % (11.5-14.5); WBC 5.12 X 10*3/uL (4.50-10.00)
[2024-08-30 17:01] LABS: Erythrocyte Sedimentation Rate <1 mm/Hr (0-20)
[2024-08-30 20:48] LABS: ALT 12 U/L (8-44); AST 15 U/L (13-35); Albumin 4.4 g/dL (3.8-4.9); Alkaline Phosphatase 36 U/L (41-126); BUN/Creat Ratio 17.57 Ratio (12.00-20.00); Blood Urea Nitrogen 12.3 mg/dL (9.0-27.0); C Reactive Protein <0.30 mg/dL (0.00-0.80); Calcium 9.3 mg/dL (8.7-10.3); Carbon Dioxide 24.8 mmol/L (21.6-31.8); Chloride 105 mmol/L (96-109); Globulin 2.2 g/dL (1.6-3.3); Glucose 81 mg/dL (70-110); Potassium 4.1 mmol/L (3.5-5.5); Sodium 140 mmol/L (135-145); Total Bilirubin 0.6 mg/dL (0.3-1.2); Total Protein 6.6 g/dL (6.2-8.2)
== END | disposition home or self-care (01) ==
LOC: LABWHC1 13:00
PROVIDERS: ATTEND Internal Medicine Rheumatology
DX: M06.4 Inflammatory polyarthropathy (principal); Z79.60 Long term (current) use of unspecified immunomodulators and immunosuppressants
CPT/HCPCS: 36415; 80053; 85025; 85652; 86140

== ENCOUNTER → 2024-12-10 | Outpatient (CLI) | payer BC ==
[2024-12-10 18:43] LABS: Basophils # (A) 0.03 X 10*3/uL (0.00-0.10); Basophils % (A) 0.6 %; Eosinophils # (A) 0.07 X 10*3/uL (0.04-0.35); Eosinophils % (A) 1.4 %; HCT 39.1 % (37.2-46.3); HGB 13.1 g/dL (12.0-15.0); Lymphocytes # (A) 1.44 X 10*3/uL (0.90-5.00); MCH 31.3 pg (27.0-32.0); MCHC 33.5 g/dL (32.0-37.0); MCV 93.3 FL (80.0-97.0); Monocytes # (A) 0.52 X 10*3/uL (0.20-1.00); Monocytes % (A) 10.5 %; NRBC Per 100 WBC 0 X 10*3/uL (0.00-0.01); Neutrophils % (A) 58.3 %; Platelet Count 249 X 10*3/uL (140-440); RBC 4.19 X 10*6/uL (4.10-5.20); RDW 11.5 % (11.5-14.5); WBC 4.97 X 10*3/uL (4.50-10.00)
[2024-12-10 19:39] LABS: ALT 15 U/L (8-44); AST 15 U/L (13-35); Albumin 4.5 g/dL (3.8-4.9); Albumin/Globulin Ratio 2.14 Ratio (1.60-3.17); Alkaline Phosphatase 47 U/L (41-126); Blood Urea Nitrogen 11.2 mg/dL (9.0-27.0); C Reactive Protein <0.30 mg/dL (0.00-0.80); Calcium 9.3 mg/dL (8.7-10.3); Carbon Dioxide 28.4 mmol/L (21.6-31.8); Chloride 104 mmol/L (96-109); Globulin 2.1 g/dL (1.6-3.3); Glucose 82 mg/dL (70-110); Potassium 4.2 mmol/L (3.5-5.5); Sodium 141 mmol/L (135-145); Total Bilirubin 0.5 mg/dL (0.3-1.2); Total Protein 6.6 g/dL (6.2-8.2)
[2024-12-10 20:03] LABS: Erythrocyte Sedimentation Rate 1 mm/Hr (0-20)
== END | disposition home or self-care (01) ==
LOC: LABWHC1 14:17
PROVIDERS: ATTEND Internal Medicine Rheumatology
DX: M06.4 Inflammatory polyarthropathy (principal); Z79.60 Long term (current) use of unspecified immunomodulators and immunosuppressants
CPT/HCPCS: 36415; 80053; 85025; 85652; 86140